=== PATIENT | female | born 1955 | race Caucasian/White ===

== ENCOUNTER 2020-02-16 12:09 | Inpatient (IN) | payer OTHER, SELFPAY ==
[2020-02-16] VITALS (9 sets, daily range): BP systolic 112–157; BP diastolic 70–89; PULSE 89–118; RESP 18–32; TEMP 35.8–36.9; O2SAT 98–100; BMI 29.4
--- NOTE | 2020-02-16 12:24 | DI.RAD.S_ITS ---
PROCEDURE: XR CHEST 2V INDICATIONS: shortness of breath TECHNIQUE: 2 views of the chest were acquired. COMPARISON: None. FINDINGS: Surgical changes and devices: None. Lungs and pleura: Lungs are clear. No pleural effusions or pneumothorax. Asymmetric increased density within the right lung compared to the left lung is felt to be related to positioning and obliquity of the patient. No focal pulmonary consolidation is appreciated. Mediastinum: Mediastinal contours are normal. Heart size is normal. There is aortic atherosclerosis. Bones and chest wall: No suspicious bony abnormalities. Soft tissues appear unremarkable. IMPRESSION: No acute cardiopulmonary process is appreciated. Dictated by: Laureano Fuller M.D. on 02/16/2020 at 12:05 Approved by: Laureano Fuller M.D. on 02/16/2020 at 12:10
--- NOTE | 2020-02-16 12:36 | PC.NURSE ---
Patient reports two weeks of SOB. Patient has had n/vomiting for last two days. Reports weakness, increase SOB. Patient normally drinks vodka daily has not had ETOH for couple days. Pt cool to the touch. Increase work of breathing with transfer from wheelchair to bed.
[2020-02-16 12:39] LABS: Add Manual Diff / Slide Review NO; Basophils Absolute Auto 0 /uL (0-100); Basophils Percent Auto 0.3 % (0-2); Eosinophils Absolute Auto 0 /uL (0-450); Hematocrit 47.3 % (36-46); Hemoglobin 16.2 g/dL (12.0-16.0); Lymphocytes Absolute Auto 500 /uL (1100-4500); Lymphocytes Percent Auto 9.4 % (25-40); Mean Corpuscular HGB Conc 34.3 % (30-36); Mean Corpuscular Hemoglobin 34.4 PG (26-34); Mean Corpuscular Volume 100.2 fL (80-100); Monocytes Absolute Auto 600 /uL (0-900); Monocytes Percent Auto 10.7 % (3-14); Neutrophils Absolute Auto 4500 /uL (1500-7000); Neutrophils Percent Auto 79.6 % (50-75); Platelet Count 67 X10^3/uL (150-400); Red Blood Cell Count 4.72 X10^6/uL (4.0-5.2); Red Cell Distribution Width 19.1 % (11.6-14.8); White Blood Cell Count 5.7 X10^3/uL (4.5-11.0)
[2020-02-16 12:50] LABS: Lactate (Lactic Acid) 2.5 mmol/L (0.7-2.1)
[2020-02-16 12:51] LABS: Alanine Aminotransferase 131 IU/L (<35); Albumin 5.1 g/dL (3.5-5.0); Alkaline Phosphatase 258 U/L (38-126); Aspartate Aminotransferase 374 IU/L (14-36); BUN Creatinine Ratio 13.8 (6-22); Bilirubin Total 2.7 mg/dL (0.2-1.3); Blood Urea Nitrogen 17 mg/dL (7-17); Calcium 9.3 mg/dL (8.4-10.2); Chloride 96 mmol/L (98-107); Estimated Glomerular Filt Rate 43.8 mL/min (>60); Glucose 239 mg/dL (80-110); HEMOLYSIS < 15 (0-50); Potassium 4.5 mmol/L (3.4-5.1); Sodium 133 mmol/L (137-145)
[2020-02-16 13:01] LABS: Albumin Globulin Ratio 1.1 (1.0-2.8); Globulin 4.5 g/dL (1.7-4.1); Total Protein 9.6 g/dL (6.3-8.2)
[2020-02-16 13:02] LABS: Carbon Dioxide 8 mmol/L (22-32)
[2020-02-16] MEDS: ONDANSETRON 4 MG/2 ML INJ (13:29)
--- NOTE | 2020-02-16 13:32 | DI.CT.S_ITS ---
PROCEDURE: CT ABDOMEN PELVIS W CON INDICATIONS: pain vomiting TECHNIQUE: After the administration of intravenous contrast, 5 mm thick sections acquired from the diaphragm to the symphysis. 5 mm coronal and sagittal reformats were acquired. For radiation dose reduction, the following was used: automated exposure control, adjustment of mA and/or kV according to patient size. COMPARISON: [facility], CT, CT ANGIO CHEST PE PROTOCOL, 02/16/2020, 13:33. FINDINGS: Image quality: Good. Mild motion artifact. ABDOMEN: Lung bases: Peripheral reticular thickening at the lung bases. No pleural effusion. Heart size is normal. Aortic valvular calcifications. Small hiatal hernia. Solid organs: Liver is normal in size. Hepatic steatosis. Gallbladder is absent. Biliary system is non dilated. Pancreas enhances normally. Apparent stranding in the retroperitoneum posterior to the pancreas, (08/06). No loculated fluid collection. Spleen is normal in size and enhancement. No adrenal nodules. Kidneys demonstrate normal size and enhancement, without hydronephrosis. Peritoneum and bowel: Bowel loops demonstrate normal wall thickness and caliber. Appendix not definitely seen. No ascites or pneumoperitoneum. Stranding and inferior to the liver. Nodes and vessels: No retroperitoneal or mesenteric adenopathy by size criteria. Aorta and inferior vena cava are normal in size. Miscellaneous: No ventral hernias. PELVIS: Genitourinary: Bladder is decompressed. Uterus is resected. Trace free fluid in the pelvis. Miscellaneous: No inguinal hernias or adenopathy. Bones: No suspicious bony lesions. Chronic appearing L1 compression fracture. IMPRESSION: 1. Mild stranding in the retroperitoneum adjacent to the pancreas and inferior to the liver. These findings raise the possibility of pancreatitis. -Recommend correlation with serum lipase. 2. Trace fluid in the pelvis. 3. No bowel obstruction. Additional findings: -Peripheral reticular thickening at the lung bases. Possible pulmonary edema versus interstitial lung disease. -Hepatic steatosis. -Small hiatal hernia. -Prior L1 compression fracture. Dictated by: Pj Wheeler M.D. on 02/16/2020 at 14:12 Approved by: Pj Wheeler M.D. on 02/16/2020 at 14:20
--- NOTE | 2020-02-16 13:36 | ED_ITS ---
HPI - SOB/Dyspnea General Chief Complaint: Shortness of Breath/Dyspnea Stated Complaint: SOB Time Seen by Provider: 02/16/20 12:25 Source: patient and family Mode of arrival: Family Vehicle Limitations: no limitations History of Present Illness HPI Narrative: The patient is 64-year-old female who presents with a variety of complaints. She says she has been short of breath for about 2 weeks on no fever or cough. She says it is worse with exertion she sometimes has chest discomfort as well. However she started having abdominal pain and vomiting as well. The vomiting she said started yesterday and is worse today. She has been trying to keep water down but has been unable to. She has no diarrhea. She denies any recent travel. She is an alcoholic and drinks vodka daily. However she has not had anything to drink for the last 2 days MD Complaint: shortness of breath Onset (ago): day(s) (14) Related Data Home Medications Medication Instructions Recorded Confirmed duloxetine 30 mg capsule,delayed 30 mg PO DAILY 08/09/19 09/19/19 release Previous Rx's Medication Instructions Recorded ketotifen fumarate 0.025 % (0.035 1 drop EYE-BOTH BID #5 ml 09/19/19 %) eye drops Allergies Allergy/AdvReac Type Severity Reaction Status Date / Time No Known Drug Allergies Allergy Verified 02/16/20 12:30 Review of Systems Review of Systems ROS Unobtainable: All systems reviewed & are unremarkable except as noted in HPI and below Constitutional Constitutional: Denies chills, Denies fever(s), Denies lethargy and Denies weakness Cardiovascular Cardiovascular: Reports as per HPI, Reports chest pain, Reports dyspnea and Reports dyspnea on exertion Respiratory Respiratory: Reports as per HPI, Denies cough, Reports dyspnea and Reports dyspnea on exertion Gastrointestinal Gastrointestinal: Reports abdominal pain, Denies change in bowel habits, Denies diarrhea, Reports nausea and Reports vomiting Integumentary/Breasts Skin/Breast: Denies pruritus, Denies erythema, Denies rash and Denies wounds Neurologic Neurologic: Denies abnormal speech and Denies weakness Patient History Social History Smoking Status: Former smoker Smoking Status: Former smoker alcohol intake frequency: 3 or more drinks per day Alcohol type: hard liquor Substance Use Type: does not use Exam Initial Vital Signs Initial Vital Signs: Vital Signs Pulse Rate 118 H 02/16/20 12:24 Respiratory Rate 32 H 02/16/20 12:24 Blood Pressure 112/70 02/16/20 12:24 Pulse Oximetry 98 02/16/20 12:24 GENERAL: Obese female HEENT: Head atraumatic,EOMI, pupils reactive, face symmetric, CARDIOVASCULAR: Regular rate and rhythm without murmurs, rubs or gallops. RESPIRATORY: Breath sounds equal bilaterally, no wheezes rales or rhonchi. No tachypnea speaks in full sentences ABDOMEN: Soft, tender right upper quadrant no guarding no rebound EXTREMITIES: Normal range of motion, no clubbing or edema. Neurovascularly intact NEUROLOGICAL: Alert and oriented x4.Normal gait and speech. SKIN: Warm, dry, no laceration, no petechiae, no rashes or lesions. Course Orders Ordered: ED Orders 02/16/20 12:24 XR chest 2V Stat EKG-12 Lead Stat Measure peak expiratory flow ONCE RT Consult Eval and Treat Now 02/16/20 12:30 CRP [C-Reactive Protein Quant] Stat Complete Blood Count AUTO DIFF Stat Comprehensive Metabolic Panel Stat Erythrocyte Sedimentation Rate Stat Ferritin Stat Ketones (Beta-Hydroxybutyrate) Stat Lactate (Lactic Acid) Stat NT-proBNP (BNP-Adult 18+) Stat Partial Thromboplastin Time Stat Procalcitonin Stat Prothrombin Time INR Stat Troponin & CK Cardiac Panel Stat 02/16/20 13:32 CT abdomen pelvis w con Stat 02/16/20 13:38 CT angio chest PE protocol Stat 02/16/20 15:31 Urinalysis and Microscopic Stat 02/16/20 16:15 Electrolytes Stat Glucose Stat Dextrose/Sodium Chloride (Dextrose 5%-0.9% Ns) 1,000 mls @ 150 mls/hr IV CONT JOSEPH Last Infusion: 02/16/20 18:00 Dose: 150 mls/hr Documented by: Admin: 02/16/20 17:45 Dose: 150 mls/hr Documented by: YASMINE INSULIN DRIP PREMIX (Myxredlin Drip Premix) 100 unit in 100 mls @ 6 mls/hr IV TITRATE JOSEPH; Protocol Last Admin: 02/16/20 17:24 Dose: 6 mls/hr, 6 mls/hr Documented by: YASMINE Cosigned by: KSCHERE Discontinued Medications Sodium Chloride (Normal Saline 0.9%) 1,000 mls @ 1,000 mls/hr IV BOLUS ONE Stop: 02/16/20 14:34 Last Infusion: 02/16/20 16:36 Dose: 0 mls/hr Documented by: Admin: 02/16/20 14:04 Dose: 1,000 mls/hr Documented by: YASMINE Insulin Human Regular 100 unit (/ Sodium Chloride) 100 mls @ 6 mls/hr IV TITRATE JOSEPH; Protocol Ondansetron HCl (Zofran) 4 mg IV NOW ONE Stop: 02/16/20 13:33 Last Admin: 02/16/20 14:43 Dose: Not Given Documented by: YASMINE Vital Signs Vital signs: Vital Signs - 8 hr 02/16/20 12:24 02/16/20 12:38 02/16/20 12:42 Temperature 96.5 F L Pulse Rate 118 H 89 Respiratory Rate 32 H 24 Blood Pressure 112/70 Blood Pressure [Right Arm] Pulse Oximetry 98 99 02/16/20 13:30 02/16/20 14:35 Temperature Pulse Rate 107 H Respiratory Rate 22 Blood Pressure Blood Pressure [Right Arm] 157/85 H Pulse Oximetry 100 MDM - SOB/Dyspnea Lab Data Attestation: I reviewed the patient's lab results. Result diagrams: 02/16/20 12:30 02/16/20 16:15 Labs: Lab Results 02/16/20 02/16/20 02/16/20 Range/Units 12:30 12:30 12:30 WBC 5.7 (4.5-11.0) X10^3/uL RBC 4.72 (4.0-5.2) X10^6/uL Hgb 16.2 H (12.0-16.0) g/dL Hct 47.3 H (36-46) % MCV 100.2 H (80-100) fL MCH 34.4 H (26-34) PG MCHC 34.3 (30-36) % RDW 19.1 H (11.6-14.8) % Plt Count 67 L (150-400) X10^3/uL Neut % (Auto) 79.6 H (50-75) % Lymph % (Auto) 9.4 L (25-40) % [place] % (Auto) 10.7 (3-14) % Eos % (Auto) 0.0 L (2-4) % Baso % (Auto) 0.3 (0-2) % Neut # (Auto) 4500 (2139-4710) /uL Lymph # (Auto) 500 L (1875-7581) /uL [place] # (Auto) 600 (0-900) /uL Eos # (Auto) 0 (0-450) /uL Baso # (Auto) 0 (0-100) /uL ESR (0-20) MM/HR PT (10.1-12.7) SECONDS INR (0.9-1.3) APTT (26.4-36.2) SECONDS Sodium 133 L (137-145) mmol/L Potassium 4.5 (3.4-5.1) mmol/L Chloride 96 L (98-107) mmol/L Carbon Dioxide 8 L* (22-32) mmol/L BUN 17 (7-17) mg/dL Creatinine 1.23 H (0.52-1.04) mg/dL Estimated GFR 43.8 L (>60) mL/min BUN/Creatinine Ratio 13.8 (6-22) Glucose 239 H (80-110) mg/dL Lactate 2.5 H (0.7-2.1) mmol/L Calcium 9.3 (8.4-10.2) mg/dL Ferritin (11-264) ng/mL Total Bilirubin 2.7 H (0.2-1.3) mg/dL AST 374 H (14-36) IU/L ALT 131 H (<35) IU/L Alkaline Phosphatase 258 H (38-126) U/L Total Creatine Kinase (30-135) U/L CK-MB (CK-2) (<2.37) ng/mL CK-MB (CK-2) Rel Index (1.5-5.0) % Troponin I (0.01-0.034) ng/mL C-Reactive Protein (<1.0) mg/dL NT-Pro-B Natriuret Pep (<125) pg/mL Total Protein 9.6 H (6.3-8.2) g/dL Albumin 5.1 H (3.5-5.0) g/dL Globulin 4.5 H (1.7-4.1) g/dL Albumin/Globulin Ratio 1.1 (1.0-2.8) Procalcitonin (<0.5) ng/mL Ketones (<0.27) mmol/L COVID-19 PCR 02/16/20 02/16/20 02/16/20 Range/Units 12:30 12:30 12:30 WBC (4.5-11.0) X10^3/uL RBC (4.0-5.2) X10^6/uL Hgb (12.0-16.0) g/dL Hct (36-46) % MCV (80-100) fL MCH (26-34) PG MCHC (30-36) % RDW (11.6-14.8) % Plt Count (150-400) X10^3/uL Neut % (Auto) (50-75) % Lymph % (Auto) (25-40) % [place] % (Auto) (3-14) % Eos % (Auto) (2-4) % Baso % (Auto) (0-2) % Neut # (Auto) (5780-3423) /uL Lymph # (Auto) (3366-9545) /uL [place] # (Auto) (0-900) /uL Eos # (Auto) (0-450) /uL Baso # (Auto) (0-100) /uL ESR 2 (0-20) MM/HR PT (10.1-12.7) SECONDS INR (0.9-1.3) APTT (26.4-36.2) SECONDS Sodium (137-145) mmol/L Potassium (3.4-5.1) mmol/L Chloride (98-107) mmol/L Carbon Dioxide (22-32) mmol/L BUN (7-17) mg/dL Creatinine (0.52-1.04) mg/dL Estimated GFR (>60) mL/min BUN/Creatinine Ratio (6-22) Glucose (80-110) mg/dL Lactate (0.7-2.1) mmol/L Calcium (8.4-10.2) mg/dL Ferritin 1950 H (11-264) ng/mL Total Bilirubin (0.2-1.3) mg/dL AST (14-36) IU/L ALT (<35) IU/L Alkaline Phosphatase (38-126) U/L Total Creatine Kinase (30-135) U/L CK-MB (CK-2) (<2.37) ng/mL CK-MB (CK-2) Rel Index (1.5-5.0) % Troponin I (0.01-0.034) ng/mL C-Reactive Protein 4.0 H (<1.0) mg/dL NT-Pro-B Natriuret Pep (<125) pg/mL Total Protein (6.3-8.2) g/dL Albumin (3.5-5.0) g/dL Globulin (1.7-4.1) g/dL Albumin/Globulin Ratio (1.0-2.8) Procalcitonin 0.63 H (<0.5) ng/mL Ketones (<0.27) mmol/L COVID-19 PCR 02/16/20 02/16/20 02/16/20 Range/Units 12:30 12:30 12:30 WBC (4.5-11.0) X10^3/uL RBC (4.0-5.2) X10^6/uL Hgb (12.0-16.0) g/dL Hct (36-46) % MCV (80-100) fL MCH (26-34) PG MCHC (30-36) % RDW (11.6-14.8) % Plt Count (150-400) X10^3/uL Neut % (Auto) (50-75) % Lymph % (Auto) (25-40) % [place] % (Auto) (3-14) % Eos % (Auto) (2-4) % Baso % (Auto) (0-2) % Neut # (Auto) (0847-2130) /uL Lymph # (Auto) (9589-2213) /uL [place] # (Auto) (0-900) /uL Eos # (Auto) (0-450) /uL Baso # (Auto) (0-100) /uL ESR (0-20) MM/HR PT 11.3 (10.1-12.7) SECONDS INR 1.0 (0.9-1.3) APTT 32 (26.4-36.2) SECONDS Sodium (137-145) mmol/L Potassium (3.4-5.1) mmol/L Chloride (98-107) mmol/L Carbon Dioxide (22-32) mmol/L BUN (7-17) mg/dL Creatinine (0.52-1.04) mg/dL Estimated GFR (>60) mL/min BUN/Creatinine Ratio (6-22) Glucose (80-110) mg/dL Lactate (0.7-2.1) mmol/L Calcium (8.4-10.2) mg/dL Ferritin (11-264) ng/mL Total Bilirubin (0.2-1.3) mg/dL AST (14-36) IU/L ALT (<35) IU/L Alkaline Phosphatase (38-126) U/L Total Creatine Kinase 174 H (30-135) U/L CK-MB (CK-2) 6.41 H (<2.37) ng/mL CK-MB (CK-2) Rel Index 3.7 (1.5-5.0) % Troponin I < 0.012 (0.01-0.034) ng/mL C-Reactive Protein (<1.0) mg/dL NT-Pro-B Natriuret Pep 231 H (<125) pg/mL Total Protein (6.3-8.2) g/dL Albumin (3.5-5.0) g/dL Globulin (1.7-4.1) g/dL Albumin/Globulin Ratio (1.0-2.8) Procalcitonin (<0.5) ng/mL Ketones 8.95 H (<0.27) mmol/L COVID-19 PCR 02/16/20 02/16/20 02/16/20 Range/Units 13:00 13:00 14:50 WBC (4.5-11.0) X10^3/uL RBC (4.0-5.2) X10^6/uL Hgb (12.0-16.0) g/dL Hct (36-46) % MCV (80-100) fL MCH (26-34) PG MCHC (30-36) % RDW (11.6-14.8) % Plt Count (150-400) X10^3/uL Neut % (Auto) (50-75) % Lymph % (Auto) (25-40) % [place] % (Auto) (3-14) % Eos % (Auto) (2-4) % Baso % (Auto) (0-2) % Neut # (Auto) (7689-2439) /uL Lymph # (Auto) (3064-9736) /uL [place] # (Auto) (0-900) /uL Eos # (Auto) (0-450) /uL Baso # (Auto) (0-100) /uL ESR (0-20) MM/HR PT (10.1-12.7) SECONDS INR (0.9-1.3) APTT (26.4-36.2) SECONDS Sodium (137-145) mmol/L Potassium (3.4-5.1) mmol/L Chloride (98-107) mmol/L Carbon Dioxide (22-32) mmol/L BUN (7-17) mg/dL Creatinine (0.52-1.04) mg/dL Estimated GFR (>60) mL/min BUN/Creatinine Ratio (6-22) Glucose (80-110) mg/dL Lactate 1.5 (0.7-2.1) mmol/L Calcium (8.4-10.2) mg/dL Ferritin (11-264) ng/mL Total Bilirubin (0.2-1.3) mg/dL AST (14-36) IU/L ALT (<35) IU/L Alkaline Phosphatase (38-126) U/L Total Creatine Kinase (30-135) U/L CK-MB (CK-2) (<2.37) ng/mL CK-MB (CK-2) Rel Index (1.5-5.0) % Troponin I (0.01-0.034) ng/mL C-Reactive Protein (<1.0) mg/dL NT-Pro-B Natriuret Pep (<125) pg/mL Total Protein (6.3-8.2) g/dL Albumin (3.5-5.0) g/dL Globulin (1.7-4.1) g/dL Albumin/Globulin Ratio (1.0-2.8) Procalcitonin (<0.5) ng/mL Ketones (<0.27) mmol/L COVID-19 PCR Cancelled Negative 02/16/20 02/16/20 02/16/20 Range/Units 14:50 14:50 16:15 WBC (4.5-11.0) X10^3/uL RBC (4.0-5.2) X10^6/uL Hgb (12.0-16.0) g/dL Hct (36-46) % MCV (80-100) fL MCH (26-34) PG MCHC (30-36) % RDW (11.6-14.8) % Plt Count (150-400) X10^3/uL Neut % (Auto) (50-75) % Lymph % (Auto) (25-40) % [place] % (Auto) (3-14) % Eos % (Auto) (2-4) % Baso % (Auto) (0-2) % Neut # (Auto) (5622-7408) /uL Lymph # (Auto) (1740-9956) /uL [place] # (Auto) (0-900) /uL Eos # (Auto) (0-450) /uL Baso # (Auto) (0-100) /uL ESR (0-20) MM/HR PT (10.1-12.7) SECONDS INR (0.9-1.3) APTT (26.4-36.2) SECONDS Sodium Cancelled 132 L (137-145) mmol/L Potassium Cancelled 5.0 (3.4-5.1) mmol/L Chloride Cancelled 99 (98-107) mmol/L Carbon Dioxide Cancelled 9 L* (22-32) mmol/L BUN (7-17) mg/dL Creatinine (0.52-1.04) mg/dL Estimated GFR (>60) mL/min BUN/Creatinine Ratio (6-22) Glucose Cancelled 165 H (80-110) mg/dL Lactate (0.7-2.1) mmol/L Calcium (8.4-10.2) mg/dL Ferritin (11-264) ng/mL Total Bilirubin (0.2-1.3) mg/dL AST (14-36) IU/L ALT (<35) IU/L Alkaline Phosphatase (38-126) U/L Total Creatine Kinase (30-135) U/L CK-MB (CK-2) (<2.37) ng/mL CK-MB (CK-2) Rel Index (1.5-5.0) % Troponin I (0.01-0.034) ng/mL C-Reactive Protein (<1.0) mg/dL NT-Pro-B Natriuret Pep (<125) pg/mL Total Protein (6.3-8.2) g/dL Albumin (3.5-5.0) g/dL Globulin (1.7-4.1) g/dL Albumin/Globulin Ratio (1.0-2.8) Procalcitonin (<0.5) ng/mL Ketones (<0.27) mmol/L COVID-19 PCR Imaging Data Chest x-ray: Radiologist's Impression: PROCEDURE: XR CHEST 2V INDICATIONS: shortness of breath TECHNIQUE: 2 views of the chest were acquired. COMPARISON: None. FINDINGS: Surgical changes and devices: None. Lungs and pleura: Lungs are clear. No pleural effusions or pneumothorax. Asymmetric increased density within the right lung compared to the left lung is felt to be related to positioning and obliquity of the patient. No focal pulmonary consolidation i s appreciated. Mediastinum: Mediastinal contours are normal. Heart size is normal. There is aortic atherosclerosis. Bones and chest wall: No suspicious bony abnormalities. Soft tissues appear unremarkable. IMPRESSION: No acute cardiopulmonary process is appreciated. Dictated by: Laureano Fuller M.D. on 02/16/2020 at 12:0 CT scan - abdomen/pelvis: Radiologist's Impression: PROCEDURE: CT ABDOMEN PELVIS W CON INDICATIONS: pain vomiting TECHNIQUE: After the administration of intravenous contrast, 5 mm thick sections acquired from the diaphragm to the symphysis. 5 mm coronal and sagittal reformats were acquired. For radiation dose reduction, the following was used: automated exposure control, adjustment of mA and/or kV according to patient size. COMPARISON: [facility], CT, CT ANGIO CHEST PE PROTOCOL, 02/16/2020, 13:33. FINDINGS: Image quality: Good. Mild motion artifact. ABDOMEN: Lung bases: Peripheral reticular thickening at the lung bases. No pleural effusion. Heart size is normal. Aortic valvular calcifications. Small hiatal hernia. Solid organs: Liver is normal in size. Hepatic steatosis. Gallbladder is absent. Biliary system is non dilated. Pancreas enhances normally. Apparent stranding in the retroperitoneum posterior to the pancreas, (08/06). No loculated fluid collection. Spleen is normal in size and enhancement. No adrenal nodules. Kidneys demonstrate normal size and enhancement, without hydronephrosis. Peritoneum and bowel: Bowel loops demonstrate normal wall thickness and caliber. Appendix not definitely seen. No ascites or pneumoperitoneum. Stranding and inferior to the liver. Nodes and vessels: No retroperitoneal or mesenteric adenopathy by size criteria. Aorta and inferior vena cava are normal in size. Miscellaneous: No ventral hernias. PELVIS: Genitourinary: Bladder is decompressed. Uterus is resected. Trace free fluid in the pelvis. Miscellaneous: No inguinal hernias or adenopathy. Bones: No suspicious bony lesions. Chronic appearing L1 compression fracture. IMPRESSION: 1. Mild stranding in the retroperitoneum adjacent to the pancreas and inferior to the liver. These findings raise the possibility of pancreatitis. -Recommend correlation with serum lipase. 2. Trace fluid in the pelvis. 3. No bowel obstruction. Additional findings: -Peripheral reticular thickening at the lung bases. Possible pulmonary edema versus interstitial lung disease. -Hepatic steatosis. -Small hiatal hernia. -Prior L1 compression fracture. Dictated by: Pj Wheeler M.D. on 02/16/2020 at 14:12 CT scan - chest: Radiologist's Impression: PROCEDURE: CT ANGIO CHEST PE PROTOCOL INDICATIONS: shortness of breath TECHNIQUE: After the administration of intravenous contrast, 2 mm thick sections acquired from the pulmonary apices to the posterior costophrenic angles. 3-dimensional maximum intensity projection (MIP) coronal and sagittal reformats were then acquired through the thorax. For radiation dose reduction, the following was used: automated exposure control, adjustment of mA and/or kV according to patient size. COMPARISON: [facility], , XR CHEST 2V, 02/16/2020, 12:24. FINDINGS: Image quality: Excellent. Pulmonary arteries: Pulmonary arteries are normal in size, and demonstrate no intraluminal filling defects to suggest central pulmonary embolism. Lungs and pleura: Scattered patchy groundglass opacities are seen in posterior and lateral periphery of bilateral lung abdi. Moderate centrilobular emphysema is also seen. Interstitial nodular thickening is seen in periphery of bilateral lung abdi. No pleural effusions or pneumothorax. Central and peripheral airways are patent. Mediastinum: Heart size is normal, without pericardial effusion. Mild atherosclerotic calcifications are seen. Mildly enlarged mediastinal and hilar lymph nodes are seen measures up to 1.1 cm in short axis diameter a precarinal space and up to 1.3 cm in short axis diameter in the subcarinal space. Esophagus is normal in caliber, with a small to moderate-sized hiatal hernia. Bones and chest wall: No suspicious bony lesions. Ribs and thoracic spine appear intact throughout. Thyroid gland is within normal limits. No axillary or supraclavicular adenopathy. Abdomen: There is hepatic steatosis, no discrete hepatic lesion. Hepatomegaly is also noted. IMPRESSION: 1. No evidence of pulmonary emboli. No thoracic aortic aneurysm or dissection. 2. Extensive ground glass opacities scattered in posterior lateral aspect of bilateral lung abdi suggestive of pulmonary edema versus pneumonitis. Atypical pneumonia cannot be excluded. No pleural effusion or pneumothorax. Airway is patent. 3. Moderate centrilobular emphysema and suggestion of chronic interstitial lung disease. 4. Enlarged mediastinal lymph nodes suggestive of reactive inflammatory nodes. 5. Hepatomegaly and hepatic steatosis. Dictated by: Ryley Parmar M.D. on 02/16/2020 at 13:5 ECG Data Attestation: I personally reviewed and interpreted this ECG as follows: Prior ECG tracings: not available for review Interpretation: Sinus tachycardia rate [address] changes artifact noted MDM Narrative Medical decision making narrative: Anion gap 29. Patient has no known diabetes possible alcoholic ketoacidosis. She is currently not vomiting. She is started on IV fluids. I spoke with Dr. Acosta. Requested repeat electrolytes. Bicarb continues to be low she is acidotic on ABG as well. Insulin drip and D5 have been started. Patient is requesting water. COVID is negative Discharge Plan Departure Patient Disposition: Admitted As Inpatient Clinical Impression: Ketoacidosis Discharge Date/Time: 02/16/20 18:14 Admit Date/Time: 02/16/20 17:30 Admit Provider: Demario Acosta
[2020-02-16 13:52] LABS: Creatine Kinase 174 U/L (30-135)
[2020-02-16 13:57] LABS: Ketones (Beta-Hydroxybutyrate) 8.95 mmol/L (<0.27)
[2020-02-16] MEDS: SODIUM CHLORIDE 0.9% 1,000 ML 1000 ML IV (14:04)
[2020-02-16 14:05] LABS: NT-proBNP (BNP-Adult 18+) 231 pg/mL (<125); Troponin I < 0.012 ng/mL (0.01-0.034)
[2020-02-16 14:09] LABS: Erythrocyte Sedimentation Rate 2 MM/HR (0-20); Procalcitonin 0.63 ng/mL (<0.5)
[2020-02-16 14:28] LABS: COVID19 -Nasal RAPID Negative (Negative)
[2020-02-16 14:36] LABS: Reflexed Lactate in 2 Hours Y
[2020-02-16 15:14] LABS: Lactate 2HR (Lactic Acid Rflx) 1.5 mmol/L (0.7-2.1)
[2020-02-16 15:25] LABS: Ferritin 1950 ng/mL (11-264)
[2020-02-16 16:01] LABS: CKMB % Relative Index 3.7 % (1.5-5.0); Creatine Kinase MB 6.41 ng/mL (<2.37)
[2020-02-16 16:03] LABS: Prothrombin Time 11.3 SECONDS (10.1-12.7)
[2020-02-16 16:06] LABS: PTT Partial Thromboplastin Tim 32 SECONDS (26.4-36.2)
--- NOTE | 2020-02-16 16:12 | PC.NURSE ---
RT at bedside for ABG
[2020-02-16 16:39] LABS: PCO2 ABG 17.2 mmHg (35-45)
[2020-02-16 16:40] LABS: Fractionated Inspired Oxygen 21; HCO3 ABG 7 mmol/L (22-26); Oxygen Saturation ABG 96 % (95-100); PO2 ABG 101 mmHg (80-100); TCO2 ABG 7 mmol/L (21-31)
[2020-02-16 17:00] LABS: Chloride 99 mmol/L (98-107); Glucose 165 mg/dL (80-110); HEMOLYSIS 33 (0-50); Sodium 132 mmol/L (137-145)
[2020-02-16 17:03] LABS: Carbon Dioxide 9 mmol/L (22-32)
[2020-02-16] MEDS: INSULIN DRIP PREMIX 100 UNIT/100 ML PLAST..BAG 6 UNIT IV (17:24)
[2020-02-16] MEDS: DEXTROSE 5%-0.9% NS 1,000 ML 150 ML IV (17:45)
--- NOTE | 2020-02-16 18:26 | PC.NURSE ---
Addendum entered by Vianey Hogan R.N. 02/16/20 22:42: 2230- Patient has bilious urine. Sample sent per order. Patient remains alert oriented and cooperative. No distress as long as she is lying in bed quiet. Becomes very SOB with activity. Insulin gtt remains off. KRider infusing per order. Patient is on room air. Patient remains afebrile. Original Note: 1800- Patient arrived via stretcher to room 227. Patient is alert and cooperative but very weak. Slide board needed to move from stretcher to bed. Patient had a rapid Covid test that was negative. However patient has suspicious markers, elevated Ferritin, Elevated CRP, Weakness with N/V and ground glass opacity on CT scan. Based on this we are treating her as a R/O covid until another test result is received. Insulin gtt is at 6u/hr and she has D5.9NS infusing at 150cc/hr. No void yet. Dr. Acosta here to see patient.
--- NOTE | 2020-02-16 19:12 | P.HP_ITS ---
History of Present Illness History of Present Illness Date Patient Seen: 02/16/20 Time Patient Seen: 19:12 Date of Onset of Symptoms: 02/09/20 Chief complaint: SOB Narrative: Morenita Watt is a 64 year old female with PMH of EtOH use, chronic neuropathy, and vision problems who presents with primarily nausea and vomiting for the past 1-2 days and shortness of breath progressive over the past week. She also has complained of a sore throat over the past week. Shortness of breath has really been over the past 6 months or so, starting with exertion but over the past few days leading to shortness of breath at rest. She denies any chest pain, or tightness. She does complain of epigastric abdominal pain but only recently after vomiting. She further complains of a sore throat and odynophagia. She also has been drinking quite heavily over the past 3 months since her birthday. She was a chronic alcoholic and was admitted approximately 6 years ago to [facility] for alcohol withdrawal where she suffered seizures and needed to be intubated. She reports being abstinent from alcohol until 3 months ago when she drink and her birthday and has continued drinking she states a 0.5 gal per week of vodka. In the emergency room, she was mildly tachypnic but other vitals were unremarkable. Initial laboratory evaluations showed a bicarb of 8 with a glucose of 236. Hgb of 16.2, MCV 100.2, and Plt of 67. ABC showed pH of 7.2 with PCO2 of 17 which was appropriate for bicarb of 7. Initial lactate 2.5 improved to 1.5 on repeat. Tbili 2.7 with AST of 374 and ALT 131. INR 1.0. Initialy trop negaitve. BNP 231. PRocalcitonin 0.63. Ferritin level 1950. CXR was negative for acute processes. CTA showing extensive ground glass opacities, centrolobular emphysema, enlarged lymph nodes, and CT Abd showing hepatomegaly and steatosis, trace fluid in the pelvis. Patient was admitted to the ICU on an insulin infusion for possible DKA. Patient History Family & Social History Safety & Behavioral: Feels Safe in Current Yes Environment Been Physically Hurt or No Threatened By a Person Tobacco & Substance use: Smoking Status Former smoker alcohol intake frequency 3 or more drinks per day Substance Use Type does not use Meds Home Medications and Allergies Home Medications Medication Instructions Recorded Confirmed Type duloxetine 30 mg capsule,delayed 30 mg PO DAILY 08/09/19 09/19/19 History release ketotifen fumarate 0.025 % (0.035 1 drop EYE-BOTH BID #5 ml 09/19/19 09/19/19 Rx %) eye drops Allergies Allergy/AdvReac Type Severity Reaction Status Date / Time No Known Drug Allergies Allergy Verified 02/16/20 12:30 Review of Systems Review of Systems Narrative: All other systems reviewed with the patient and are negative unless otherwise stated. Exam Vital Signs (past 8 hours): - 02/16/20 12:24 02/16/20 12:38 02/16/20 12:42 Temperature 96.5 F L Pulse Rate 118 H 89 Respiratory Rate 32 H 24 Blood Pressure 112/70 Blood Pressure [Right Arm] Pulse Oximetry 98 99 02/16/20 13:30 02/16/20 14:35 02/16/20 17:41 Temperature Pulse Rate 107 H 100 H Respiratory Rate 22 18 Blood Pressure 148/79 H Blood Pressure [Right Arm] 157/85 H Pulse Oximetry 100 100 02/16/20 18:00 Temperature 97.0 F L Pulse Rate 101 H Respiratory Rate 24 Blood Pressure 149/74 H Blood Pressure [Right Arm] Pulse Oximetry 100 Oxygen Delivery Method Room Air Oxygen Flow Rate 0 Narrative Exam Narrative: GENERAL APPEARANCE: Acutely ill-appearing female, but well developed and well nourished, resting comfortably in hospital bed. Slightly slowed speech. SKIN: Inspection of the skin reveals no rashes, ulcerations or petechiae. HEENT: Normocephalic atraumatic, extraocular muscles are intact, oropharynx has cobblestoning posteriorly, and there is a small white lesion posteriorly as well and possibly 1 on the back of her tongue. Mucous membranes are dry. Neck is supple, there is tender adenopathy on the right. NECK: Supple and symmetric. There was no thyroid enlargement. CHEST: Normal AP diameter and normal contour without any kyphoscoliosis. LUNGS: Auscultation of the lungs revealed bibasilar rales, slightly diminished breath sounds bilaterally but no wheezing. CARDIOVASCULAR: There was a tachycardic rate and regular rhythm without any murmurs, gallops, rubs. Peripheral pulses were 2+ and symmetric. ABDOMEN: Soft and nontender with normal bowel sounds. No ascites was noted. MUSCULOSKELETAL: There was no tenderness or effusions noted. Muscle strength and tone were normal. EXTREMITIES: No cyanosis, clubbing. There was possibly trace nonpitting edema bilaterally in her lower extremities. NEUROLOGIC: Alert and oriented x 3. Sluggish. Globally weak but no focal deficits. Sensation to touch was normal. Objective Labs Result Diagrams: 02/16/20 12:30 02/16/20 20:09 Labs: Laboratory Results - last 24 hr 02/16/20 02/16/20 02/16/20 12:30 12:30 12:30 WBC 5.7 RBC 4.72 Hgb 16.2 H Hct 47.3 H MCV 100.2 H MCH 34.4 H MCHC 34.3 RDW 19.1 H Plt Count 67 L Neut % (Auto) 79.6 H Lymph % (Auto) 9.4 L [place] % (Auto) 10.7 Eos % (Auto) 0.0 L Baso % (Auto) 0.3 Neut # (Auto) 4500 Lymph # (Auto) 500 L [place] # (Auto) 600 Eos # (Auto) 0 Baso # (Auto) 0 ESR PT INR APTT ABG pH ABG pCO2 ABG pO2 ABG HCO3 ABG Total CO2 ABG O2 Saturation ABG Base Excess FiO2 Sodium 133 L Potassium 4.5 Chloride 96 L Carbon Dioxide 8 L* BUN 17 Creatinine 1.23 H Estimated GFR 43.8 L BUN/Creatinine Ratio 13.8 Glucose 239 H Lactate 2.5 H Calcium 9.3 Ferritin Total Bilirubin 2.7 H AST 374 H ALT 131 H Alkaline Phosphatase 258 H Total Creatine Kinase CK-MB (CK-2) CK-MB (CK-2) Rel Index Troponin I C-Reactive Protein NT-Pro-B Natriuret Pep Total Protein 9.6 H Albumin 5.1 H Globulin 4.5 H Albumin/Globulin Ratio 1.1 Procalcitonin Ketones COVID-19 PCR 02/16/20 02/16/20 02/16/20 12:30 12:30 12:30 WBC RBC Hgb Hct MCV MCH MCHC RDW Plt Count Neut % (Auto) Lymph % (Auto) [place] % (Auto) Eos % (Auto) Baso % (Auto) Neut # (Auto) Lymph # (Auto) [place] # (Auto) Eos # (Auto) Baso # (Auto) ESR 2 PT INR APTT ABG pH ABG pCO2 ABG pO2 ABG HCO3 ABG Total CO2 ABG O2 Saturation ABG Base Excess FiO2 Sodium Potassium Chloride Carbon Dioxide BUN Creatinine Estimated GFR BUN/Creatinine Ratio Glucose Lactate Calcium Ferritin 1950 H Total Bilirubin AST ALT Alkaline Phosphatase Total Creatine Kinase CK-MB (CK-2) CK-MB (CK-2) Rel Index Troponin I C-Reactive Protein 4.0 H NT-Pro-B Natriuret Pep Total Protein Albumin Globulin Albumin/Globulin Ratio Procalcitonin 0.63 H Ketones COVID-19 PCR 02/16/20 02/16/20 02/16/20 12:30 12:30 12:30 WBC RBC Hgb Hct MCV MCH MCHC RDW Plt Count Neut % (Auto) Lymph % (Auto) [place] % (Auto) Eos % (Auto) Baso % (Auto) Neut # (Auto) Lymph # (Auto) [place] # (Auto) Eos # (Auto) Baso # (Auto) ESR PT 11.3 INR 1.0 APTT 32 ABG pH ABG pCO2 ABG pO2 ABG HCO3 ABG Total CO2 ABG O2 Saturation ABG Base Excess FiO2 Sodium Potassium Chloride Carbon Dioxide BUN Creatinine Estimated GFR BUN/Creatinine Ratio Glucose Lactate Calcium Ferritin Total Bilirubin AST ALT Alkaline Phosphatase Total Creatine Kinase 174 H CK-MB (CK-2) 6.41 H CK-MB (CK-2) Rel Index 3.7 Troponin I < 0.012 C-Reactive Protein NT-Pro-B Natriuret Pep 231 H Total Protein Albumin Globulin Albumin/Globulin Ratio Procalcitonin Ketones 8.95 H COVID-19 PCR 02/16/20 02/16/20 02/16/20 13:00 13:00 14:50 WBC RBC Hgb Hct MCV MCH MCHC RDW Plt Count Neut % (Auto) Lymph % (Auto) [place] % (Auto) Eos % (Auto) Baso % (Auto) Neut # (Auto) Lymph # (Auto) [place] # (Auto) Eos # (Auto) Baso # (Auto) ESR PT INR APTT ABG pH ABG pCO2 ABG pO2 ABG HCO3 ABG Total CO2 ABG O2 Saturation ABG Base Excess FiO2 Sodium Potassium Chloride Carbon Dioxide BUN Creatinine Estimated GFR BUN/Creatinine Ratio Glucose Lactate 1.5 Calcium Ferritin Total Bilirubin AST ALT Alkaline Phosphatase Total Creatine Kinase CK-MB (CK-2) CK-MB (CK-2) Rel Index Troponin I C-Reactive Protein NT-Pro-B Natriuret Pep Total Protein Albumin Globulin Albumin/Globulin Ratio Procalcitonin Ketones COVID-19 PCR Cancelled Negative 02/16/20 02/16/20 02/16/20 14:50 14:50 16:15 WBC RBC Hgb Hct MCV MCH MCHC RDW Plt Count Neut % (Auto) Lymph % (Auto) [place] % (Auto) Eos % (Auto) Baso % (Auto) Neut # (Auto) Lymph # (Auto) [place] # (Auto) Eos # (Auto) Baso # (Auto) ESR PT INR APTT ABG pH ABG pCO2 ABG pO2 ABG HCO3 ABG Total CO2 ABG O2 Saturation ABG Base Excess FiO2 Sodium Cancelled 132 L Potassium Cancelled 5.0 Chloride Cancelled 99 Carbon Dioxide Cancelled 9 L* BUN Creatinine Estimated GFR BUN/Creatinine Ratio Glucose Cancelled 165 H Lactate Calcium Ferritin Total Bilirubin AST ALT Alkaline Phosphatase Total Creatine Kinase CK-MB (CK-2) CK-MB (CK-2) Rel Index Troponin I C-Reactive Protein NT-Pro-B Natriuret Pep Total Protein Albumin Globulin Albumin/Globulin Ratio Procalcitonin Ketones COVID-19 PCR 02/16/20 Unknown WBC RBC Hgb Hct MCV MCH MCHC RDW Plt Count Neut % (Auto) Lymph % (Auto) [place] % (Auto) Eos % (Auto) Baso % (Auto) Neut # (Auto) Lymph # (Auto) [place] # (Auto) Eos # (Auto) Baso # (Auto) ESR PT INR APTT ABG pH 7.20 L* ABG pCO2 17.2 L* ABG pO2 101 H ABG HCO3 7 L ABG Total CO2 7 L ABG O2 Saturation 96 ABG Base Excess -21.0 L FiO2 21 Sodium Potassium Chloride Carbon Dioxide BUN Creatinine Estimated GFR BUN/Creatinine Ratio Glucose Lactate Calcium Ferritin Total Bilirubin AST ALT Alkaline Phosphatase Total Creatine Kinase CK-MB (CK-2) CK-MB (CK-2) Rel Index Troponin I C-Reactive Protein NT-Pro-B Natriuret Pep Total Protein Albumin Globulin Albumin/Globulin Ratio Procalcitonin Ketones COVID-19 PCR Assessment & Plan Assessment & Plan narrative: Morenita Watt is a 64 year old female with PMH of EtOH use, chronic neuropathy, and vision problems who presents with primarily nausea and vomiting for the past 1-2 days and shortness of breath progressive over the past week. She is admitted to the ICU for insulin infusion given possible DKA. 1. Anion gap metabolic acidosis, present on admission, appropriately compensated - suspect more likely alcoholic ketoacidosis or starvation ketosis moreso than DKA. however patient does not have reliable medical follow up and did have a glucose of 239 on admission. Cannot completely exclude DKA and therefor will treat as such until Anion gap closes and bicarb is above 15. - will send tylenol and salicylate levels. - last EtOH 2 days ago. - initial LA 2.5 - continue insulin infusion and d5 infusion. Finger sticks q1hr while on infusion. - will obtain A1c, TSH, and lipid panel. 2. EtOH use - last drink was 2 days ago. patient with history of severe withdrawal episode approx 6 years ago requiring intubation and where she suffered a seizure. - CIWA protocol with prn ativan as needed. 3. Acute hepatitis, present on admission - likely secondary to alcohol use. However given severity of transferrin elevation consider iron overload. - furhter consider ischemia given dehydration and acidosis as above - continue to follow hepatic function labs. Discriminant function of 2. No indication for steroids. 4. Elevated Ferritin - will evaluate with iron panel for TSAT calculation - suspected to be elevated given alcoholic liver disease, and possible this is reactive to an underlying infective process. - obtain UA and eval for infectious process causing elevated ferritin. 5. Dehydration - secondary to nausea, vomiting and decreased PO intake. - will rehydrate with D5 NS given above insulin infusion. 6. Bilateral pulmonary ground glass opacities, possible pneumonia - patient reports dyspnea on exertion over the past 6 months, worsening recently. Ground glass opacities are non-specific. - initial COVID 19 testing negative, will repeat and send complete viral panel. - obtain blood cultures, will treat empirically for CAP with CTX and azithro after blood cultures are drawn given severity of metabolic acidosis on presentation and CT findings. Mild procalcitonin elevation also indicative of possible bacterial infection. 7. Thrombocytopenia - possibly secondary to underlying liver disease or EtOH use. - continue to follow. transfuse for plt <20, <50 if bleeding. - hold DVT ppx. - consider hematology evaluation 8. hyponatremia, acute, present on admission - likely secondary to hypovolemia. Continue to follow. Mild only at 133 on admission. I spent 45 minutes providing critical care management this patient. This excludes time spent in performing separately billed procedures. Code: Full, surrogate decision maker is the patient's DVT: SCDs given thrombocytopenia Dispo: admitted to the ICU for insulin infusion
[2020-02-16 19:37] LABS: HEMOLYSIS 32 (0-50); Iron 203 ug/dL (37-170)
[2020-02-16 19:48] LABS: Percent Iron Saturation 100 % (15-50); Total Iron Binding Capacity 203 ug/dL (265-497); Transferrin 159 mg/dL (206-381)
[2020-02-16 20:21] LABS: HIV 1 & 2 Ab/Ag 4th Gen Combo NEGATIVE (NEGATIVE)
[2020-02-16 20:32] LABS: Acetaminophen < 10 ug/mL (10-30); Alanine Aminotransferase 98 IU/L (<35); Albumin 4.4 g/dL (3.5-5.0); Albumin Globulin Ratio 1.1 (1.0-2.8); Alkaline Phosphatase 201 U/L (38-126); Aspartate Aminotransferase 261 IU/L (14-36); BUN Creatinine Ratio 21.5 (6-22); Bilirubin Total 1.6 mg/dL (0.2-1.3); Blood Urea Nitrogen 17 mg/dL (7-17); Calcium 8.9 mg/dL (8.4-10.2); Carbon Dioxide 11 mmol/L (22-32); Chloride 103 mmol/L (98-107); Estimated Glomerular Filt Rate > 60.0 mL/min (>60); Globulin 3.9 g/dL (1.7-4.1); Glucose 107 mg/dL (80-110); HEMOLYSIS < 15 (0-50); Potassium 3.8 mmol/L (3.4-5.1); Salicylate 1.1 mg/dL (<20); Sodium 133 mmol/L (137-145); Total Protein 8.3 g/dL (6.3-8.2)
[2020-02-16 21:01] LABS: COVID19 -Nasal RAPID Negative (Negative)
[2020-02-16] MEDS: CEFTRIAXONE 1 GM/50 ML FROZ.PIGGY IV (21:07)
[2020-02-16 21:15] LABS: Adenovirus Not Detected (Not Detect); Bordetella pertussis Not Detected (Not Detect); Chlamydophila pneumoniae Not Detected (Not Detect); Coronavirus 229E Not Detected (Not Detect); Coronavirus HKU1 Not Detected (Not Detect); Coronavirus NL 63 Not Detected (Not Detect); Coronavirus OC43 Not Detected (Not Detect); Human Metapneumovirus Not Detected (Not Detect); Human Rhinovirus/Enterovirus Not Detected (Not Detect); Influenza A Not Detected (Not Detect); Influenza B Not Detected (Not Detect); Mycoplasma pneumoniae Not Detected (Not Detect); Parainfluenza Virus 1 Not Detected (Not Detect); Parainfluenza Virus 2 Not Detected (Not Detect); Parainfluenza Virus 3 Not Detected (Not Detect); Parainfluenza Virus 4 Not Detected (Not Detect); Respiratory Syncytial Virus Not Detected (Not Detect)
[2020-02-16] MEDS: AZITHROMYCIN 250 MG in DEXTROSE 5% IN WATER 250 ML IV (21:41)
[2020-02-16 22:10] LABS: WBC Urine None Seen (0-5/HPF)
[2020-02-16 22:11] LABS: Appearance Urine UA CLEAR; Bilirubin Urine UA 2+ (NEGATIVE); Glucose Urine UA NEGATIVE (Negative); Ketones Urine UA 3+ (NEGATIVE); Leukocyte Esterase Urine UA NEGATIVE (NEGATIVE); Nitrite Urine UA NEGATIVE (Negative); Occult Blood Urine UA 3+ (Negative); Protein Urine UA 2+ (Negative); Specific Gravity Urine UA <=1.005 (1.000-1.035)
[2020-02-16] MEDS: POTASSIUM CHLORIDE 40 MEQ in SODIUM CHLORIDE 0.9% 500 ML 130 ML IV (22:17)
[2020-02-16 22:36] LABS: Color Urine UA Dark Yellow; Ictotest Urine Positive (Negative); RBC Urine 5-10/HPF (0-5/HPF)
[2020-02-16 22:37] LABS: Amorphous Sediment Urine 1+; Bacteria Urine Occasional (0-1); Culture Indicated Urine Cult Not Indicated; Hyaline Casts Urine 0-1/LPF; Squamous Epithelial Cell Urine 1-5 /HPF (0-5/HPF)
[2020-02-17] VITALS (8 sets, daily range): BP systolic 120–157; BP diastolic 58–76; PULSE 104–115; RESP 16–26; TEMP 35.8–37.9; O2SAT 92–100
[2020-02-17] MEDS: THIAMINE 200 MG/2 ML VIAL 100 MG IV (01:37)
[2020-02-17] MEDS: DEXTROSE 5%-0.9% NS 1,000 ML 150 ML IV ×4 (01:41→21:26)
[2020-02-17 04:57] LABS: Add Manual Diff / Slide Review NO; Basophils Absolute Auto 0 /uL (0-100); Basophils Percent Auto 0.2 % (0-2); Eosinophils Absolute Auto 0 /uL (0-450); Eosinophils Percent Auto 0.1 % (2-4); Hematocrit 34.1 % (36-46); Hemoglobin A1C% w Est Avg Glu 4.6 % (4.0-6.0); Lymphocytes Absolute Auto 300 /uL (1100-4500); Lymphocytes Percent Auto 14.4 % (25-40); Mean Corpuscular HGB Conc 35.3 % (30-36); Mean Corpuscular Hemoglobin 34.4 PG (26-34); Mean Corpuscular Volume 97.6 fL (80-100); Monocytes Absolute Auto 300 /uL (0-900); Monocytes Percent Auto 12.1 % (3-14); Neutrophils Absolute Auto 1700 /uL (1500-7000); Neutrophils Percent Auto 73.2 % (50-75); Red Blood Cell Count 3.49 X10^6/uL (4.0-5.2); Red Cell Distribution Width 19.2 % (11.6-14.8)
[2020-02-17 04:58] LABS: Cholesterol 137 mg/dL (140-199); HDL Cholesterol 61 mg/dL (40-60); LDL Cholesterol Calculated 52 mg/dL (<100); Triglycerides 120 mg/dL (35-150)
[2020-02-17 04:59] LABS: Platelet Count 46 X10^3/uL (150-400); White Blood Cell Count 2.3 X10^3/uL (4.5-11.0)
[2020-02-17 05:00] LABS: Alanine Aminotransferase 76 IU/L (<35); Albumin 3.4 g/dL (3.5-5.0); Alkaline Phosphatase 169 U/L (38-126); Aspartate Aminotransferase 189 IU/L (14-36); Blood Urea Nitrogen 16 mg/dL (7-17); Calcium 8.7 mg/dL (8.4-10.2); Carbon Dioxide 16 mmol/L (22-32); Chloride 106 mmol/L (98-107); Estimated Glomerular Filt Rate > 60.0 mL/min (>60); Globulin 3.5 g/dL (1.7-4.1); Glucose 151 mg/dL (80-110); HEMOLYSIS < 15 (0-50); Magnesium 1.6 mg/dL (1.6-2.3); Potassium 4.4 mmol/L (3.4-5.1); Sodium 133 mmol/L (137-145); Total Protein 6.9 g/dL (6.3-8.2)
[2020-02-17 05:16] LABS: Phosphorous < 0.5 mg/dL (2.8-4.1)
[2020-02-17 05:27] LABS: Procalcitonin 0.32 ng/mL (<0.5)
[2020-02-17 05:43] LABS: Hepatitis B Surface Antigen NEGATIVE s/c (NEGATIVE)
[2020-02-17 05:47] LABS: TSH w/ Reflex to FT4 3.35 uIU/mL (0.47-4.68)
[2020-02-17 06:01] LABS: Hep C Virus Ab w/Reflex Quant NEGATIVE s/c (NEGATIVE)
[2020-02-17 06:22] LABS: Ferritin 1350 ng/mL (11-264)
--- NOTE | 2020-02-17 08:04 | PM.PN.1 ---
Subjective Subjective Date Patient Seen: 02/17/20 Time Patient Seen: 08:05 Interval history: Morenita Watt is a 64 year old female with PMH of EtOH use, chronic neuropathy, and vision problems who presents with primarily nausea and vomiting for the past 1-2 days and shortness of breath progressive over the past week. She was admitted with a severe anion gap metabolic acidosis. Anion gap has resolved after treating for possible DKA however her phosphorus was very low this morning. It appears that she is much more likely to have starvation ketosis. Either way her gap is closed and her bicarb is above 15 this morning and insulin infusion will be held. Patient is given phosphorus repletion. This morning she feels slightly better but still profoundly weak. She denies any nausea, or vomiting. She further denies any abdominal pain, chest pain, palpitations. She states she is much less short of breath. Exam Vital Signs (past 8 hours): - 02/17/20 00:16 02/17/20 02:00 02/17/20 04:00 Temperature 96.5 F L 97.0 F L Pulse Rate 105 H 115 H 106 H Respiratory Rate 18 19 19 Blood Pressure 147/70 H 157/76 H 142/64 H Pulse Oximetry 100 92 99 02/17/20 06:00 Temperature Pulse Rate 106 H Respiratory Rate 17 Blood Pressure 120/58 L Pulse Oximetry 100 Oxygen Delivery Method Room Air Oxygen Flow Rate 0 Narrative Exam Narrative: GENERAL APPEARANCE: Acutely ill-appearing female, but well developed and well nourished, resting comfortably in hospital bed. Slightly slowed speech. SKIN: Inspection of the skin reveals no rashes, ulcerations or petechiae. HEENT: Normocephalic atraumatic, extraocular muscles are intact, oropharynx has cobblestoning posteriorly, and there is a small white lesion posteriorly as well and possibly 1 on the back of her tongue. Mucous membranes are dry. Neck is supple, there is tender adenopathy on the right. NECK: Supple and symmetric. There was no thyroid enlargement. CHEST: Normal AP diameter and normal contour without any kyphoscoliosis. LUNGS: Auscultation of the lungs revealed bibasilar rales, slightly diminished breath sounds bilaterally but no wheezing. CARDIOVASCULAR: There was a tachycardic rate and regular rhythm without any murmurs, gallops, rubs. Peripheral pulses were 2+ and symmetric. ABDOMEN: Soft and nontender with normal bowel sounds. No ascites was noted. MUSCULOSKELETAL: There was no tenderness or effusions noted. Muscle strength and tone were normal. EXTREMITIES: No cyanosis, clubbing. There was possibly trace nonpitting edema bilaterally in her lower extremities. NEUROLOGIC: Alert and oriented x 3. Sluggish. Globally weak but no focal deficits. Sensation to touch was normal. Objective Labs Result Diagrams: 02/17/20 04:30 02/17/20 04:30 Labs: Laboratory Results - last 24 hr 02/16/20 02/16/20 02/16/20 12:30 12:30 12:30 WBC 5.7 RBC 4.72 Hgb 16.2 H Hct 47.3 H MCV 100.2 H MCH 34.4 H MCHC 34.3 RDW 19.1 H Plt Count 67 L Neut % (Auto) 79.6 H Lymph % (Auto) 9.4 L Fre[place] % (Auto) 10.7 Eos % (Auto) 0.0 L Baso % (Auto) 0.3 Neut # (Auto) 4500 Lymph # (Auto) 500 L Fre[place] # (Auto) 600 Eos # (Auto) 0 Baso # (Auto) 0 ESR PT INR APTT ABG pH ABG pCO2 ABG pO2 ABG HCO3 ABG Total CO2 ABG O2 Saturation ABG Base Excess FiO2 Sodium 133 L Potassium 4.5 Chloride 96 L Carbon Dioxide 8 L* BUN 17 Creatinine 1.23 H Estimated GFR 43.8 L BUN/Creatinine Ratio 13.8 Glucose 239 H Hemoglobin A1c Lactate 2.5 H Calcium 9.3 Phosphorus Magnesium Iron TIBC % Saturation Transferrin Ferritin Total Bilirubin 2.7 H AST 374 H ALT 131 H Alkaline Phosphatase 258 H Total Creatine Kinase CK-MB (CK-2) CK-MB (CK-2) Rel Index Troponin I C-Reactive Protein NT-Pro-B Natriuret Pep Total Protein 9.6 H Albumin 5.1 H Globulin 4.5 H Albumin/Globulin Ratio 1.1 Triglycerides Cholesterol LDL Cholesterol, Calc HDL Cholesterol Procalcitonin TSH Urine Color Urine Appearance Urine pH Ur Specific Lorman Urine Protein Urine Glucose (UA) Urine Ketones Urine Occult Blood Urine Nitrate Urine Bilirubin Ur Bilirubin Confirm Urine Urobilinogen Ur Leukocyte Esterase Urine RBC Urine WBC Ur Squamous Epith Cells Amorphous Sediment Urine Bacteria Hyaline Casts Ur Culture Indicated? Nasal Screen MRSA (PCR) Salicylates Acetaminophen Ketones Chlamy pneumoniae PCR Adenovirus (PCR) B.parapertussis DNA PCR Coronavirus OC43 (PCR) Coronavirus HKU1 (PCR) Coronavirus 229E (PCR) COVID-19 PCR Coronavirus NL63 (PCR) Hep Bs Antigen Hepatitis C Antibody HIV 1&2 Ab/P24 Ag 4thGn Human Metapneumovir PCR Influenza Type A (PCR) Influenza Type B (PCR) M. pneumoniae (PCR) Parainfluenza 1 (PCR) Parainfluenza 2 (PCR) Parainfluenza 3 (PCR) Parainfluenza 4 (PCR) RSV (PCR) Entero/Rhino (PCR) 02/16/20 02/16/20 02/16/20 12:30 12:30 12:30 WBC RBC Hgb Hct MCV MCH MCHC RDW Plt Count Neut % (Auto) Lymph % (Auto) Freestone % (Auto) Eos % (Auto) Baso % (Auto) Neut # (Auto) Lymph # (Auto) [place] # (Auto) Eos # (Auto) Baso # (Auto) ESR 2 PT INR APTT ABG pH ABG pCO2 ABG pO2 ABG HCO3 ABG Total CO2 ABG O2 Saturation ABG Base Excess FiO2 Sodium Potassium Chloride Carbon Dioxide BUN Creatinine Estimated GFR BUN/Creatinine Ratio Glucose Hemoglobin A1c Lactate Calcium Phosphorus Magnesium Iron TIBC % Saturation Transferrin Ferritin 1950 H Total Bilirubin AST ALT Alkaline Phosphatase Total Creatine Kinase CK-MB (CK-2) CK-MB (CK-2) Rel Index Troponin I C-Reactive Protein 4.0 H NT-Pro-B Natriuret Pep Total Protein Albumin Globulin Albumin/Globulin Ratio Triglycerides Cholesterol LDL Cholesterol, Calc HDL Cholesterol Procalcitonin 0.63 H TSH Urine Color Urine Appearance Urine pH Ur Specific Lorman Urine Protein Urine Glucose (UA) Urine Ketones Urine Occult Blood Urine Nitrate Urine Bilirubin Ur Bilirubin Confirm Urine Urobilinogen Ur Leukocyte Esterase Urine RBC Urine WBC Ur Squamous Epith Cells Amorphous Sediment Urine Bacteria Hyaline Casts Ur Culture Indicated? Nasal Screen MRSA (PCR) Salicylates Acetaminophen Ketones Chlamy pneumoniae PCR Adenovirus (PCR) B.parapertussis DNA PCR Coronavirus OC43 (PCR) Coronavirus HKU1 (PCR) Coronavirus 229E (PCR) COVID-19 PCR Coronavirus NL63 (PCR) Hep Bs Antigen Hepatitis C Antibody HIV 1&2 Ab/P24 Ag 4thGn Human Metapneumovir PCR Influenza Type A (PCR) Influenza Type B (PCR) M. pneumoniae (PCR) Parainfluenza 1 (PCR) Parainfluenza 2 (PCR) Parainfluenza 3 (PCR) Parainfluenza 4 (PCR) RSV (PCR) Entero/Rhino (PCR) 02/16/20 02/16/20 02/16/20 12:30 12:30 12:30 WBC RBC Hgb Hct MCV MCH MCHC RDW Plt Count Neut % (Auto) Lymph % (Auto) Freestone % (Auto) Eos % (Auto) Baso % (Auto) Neut # (Auto) Lymph # (Auto) Fre[place] # (Auto) Eos # (Auto) Baso # (Auto) ESR PT 11.3 INR 1.0 APTT 32 ABG pH ABG pCO2 ABG pO2 ABG HCO3 ABG Total CO2 ABG O2 Saturation ABG Base Excess FiO2 Sodium Potassium Chloride Carbon Dioxide BUN Creatinine Estimated GFR BUN/Creatinine Ratio Glucose Hemoglobin A1c Lactate Calcium Phosphorus Magnesium Iron TIBC % Saturation Transferrin Ferritin Total Bilirubin AST ALT Alkaline Phosphatase Total Creatine Kinase 174 H CK-MB (CK-2) 6.41 H CK-MB (CK-2) Rel Index 3.7 Troponin I < 0.012 C-Reactive Protein NT-Pro-B Natriuret Pep 231 H Total Protein Albumin Globulin Albumin/Globulin Ratio Triglycerides Cholesterol LDL Cholesterol, Calc HDL Cholesterol Procalcitonin TSH Urine Color Urine Appearance Urine pH Ur Specific Lorman Urine Protein Urine Glucose (UA) Urine Ketones Urine Occult Blood Urine Nitrate Urine Bilirubin Ur Bilirubin Confirm Urine Urobilinogen Ur Leukocyte Esterase Urine RBC Urine WBC Ur Squamous Epith Cells Amorphous Sediment Urine Bacteria Hyaline Casts Ur Culture Indicated? Nasal Screen MRSA (PCR) Salicylates Acetaminophen Ketones 8.95 H Chlamy pneumoniae PCR Adenovirus (PCR) B.parapertussis DNA PCR Coronavirus OC43 (PCR) Coronavirus HKU1 (PCR) Coronavirus 229E (PCR) COVID-19 PCR Coronavirus NL63 (PCR) Hep Bs Antigen Hepatitis C Antibody HIV 1&2 Ab/P24 Ag 4thGn Human Metapneumovir PCR Influenza Type A (PCR) Influenza Type B (PCR) M. pneumoniae (PCR) Parainfluenza 1 (PCR) Parainfluenza 2 (PCR) Parainfluenza 3 (PCR) Parainfluenza 4 (PCR) RSV (PCR) Entero/Rhino (PCR) 02/16/20 02/16/20 02/16/20 13:00 13:00 14:50 WBC RBC Hgb Hct MCV MCH MCHC RDW Plt Count Neut % (Auto) Lymph % (Auto) Freestone % (Auto) Eos % (Auto) Baso % (Auto) Neut # (Auto) Lymph # (Auto) [place] # (Auto) Eos # (Auto) Baso # (Auto) ESR PT INR APTT ABG pH ABG pCO2 ABG pO2 ABG HCO3 ABG Total CO2 ABG O2 Saturation ABG Base Excess FiO2 Sodium Potassium Chloride Carbon Dioxide BUN Creatinine Estimated GFR BUN/Creatinine Ratio Glucose Hemoglobin A1c Lactate 1.5 Calcium Phosphorus Magnesium Iron TIBC % Saturation Transferrin Ferritin Total Bilirubin AST ALT Alkaline Phosphatase Total Creatine Kinase CK-MB (CK-2) CK-MB (CK-2) Rel Index Troponin I C-Reactive Protein NT-Pro-B Natriuret Pep Total Protein Albumin Globulin Albumin/Globulin Ratio Triglycerides Cholesterol LDL Cholesterol, Calc HDL Cholesterol Procalcitonin TSH Urine Color Urine Appearance Urine pH Ur Specific Lorman Urine Protein Urine Glucose (UA) Urine Ketones Urine Occult Blood Urine Nitrate Urine Bilirubin Ur Bilirubin Confirm Urine Urobilinogen Ur Leukocyte Esterase Urine RBC Urine WBC Ur Squamous Epith Cells Amorphous Sediment Urine Bacteria Hyaline Casts Ur Culture Indicated? Nasal Screen MRSA (PCR) Salicylates Acetaminophen Ketones Chlamy pneumoniae PCR Adenovirus (PCR) B.parapertussis DNA PCR Coronavirus OC43 (PCR) Coronavirus HKU1 (PCR) Coronavirus 229E (PCR) COVID-19 PCR Cancelled Negative Coronavirus NL63 (PCR) Hep Bs Antigen Hepatitis C Antibody HIV 1&2 Ab/P24 Ag 4thGn Human Metapneumovir PCR Influenza Type A (PCR) Influenza Type B (PCR) M. pneumoniae (PCR) Parainfluenza 1 (PCR) Parainfluenza 2 (PCR) Parainfluenza 3 (PCR) Parainfluenza 4 (PCR) RSV (PCR) Entero/Rhino (PCR) 02/16/20 02/16/20 02/16/20 14:50 14:50 16:15 WBC RBC Hgb Hct MCV MCH MCHC RDW Plt Count Neut % (Auto) Lymph % (Auto) Fre[place] % (Auto) Eos % (Auto) Baso % (Auto) Neut # (Auto) Lymph # (Auto) [place] # (Auto) Eos # (Auto) Baso # (Auto) ESR PT INR APTT ABG pH ABG pCO2 ABG pO2 ABG HCO3 ABG Total CO2 ABG O2 Saturation ABG Base Excess FiO2 Sodium Cancelled 132 L Potassium Cancelled 5.0 Chloride Cancelled 99 Carbon Dioxide Cancelled 9 L* BUN Creatinine Estimated GFR BUN/Creatinine Ratio Glucose Cancelled 165 H Hemoglobin A1c Lactate Calcium Phosphorus Magnesium Iron TIBC % Saturation Transferrin Ferritin Total Bilirubin AST ALT Alkaline Phosphatase Total Creatine Kinase CK-MB (CK-2) CK-MB (CK-2) Rel Index Troponin I C-Reactive Protein NT-Pro-B Natriuret Pep Total Protein Albumin Globulin Albumin/Globulin Ratio Triglycerides Cholesterol LDL Cholesterol, Calc HDL Cholesterol Procalcitonin TSH Urine Color Urine Appearance Urine pH Ur Specific Lorman Urine Protein Urine Glucose (UA) Urine Ketones Urine Occult Blood Urine Nitrate Urine Bilirubin Ur Bilirubin Confirm Urine Urobilinogen Ur Leukocyte Esterase Urine RBC Urine WBC Ur Squamous Epith Cells Amorphous Sediment Urine Bacteria Hyaline Casts Ur Culture Indicated? Nasal Screen MRSA (PCR) Salicylates Acetaminophen Ketones Chlamy pneumoniae PCR Adenovirus (PCR) B.parapertussis DNA PCR Coronavirus OC43 (PCR) Coronavirus HKU1 (PCR) Coronavirus 229E (PCR) COVID-19 PCR Coronavirus NL63 (PCR) Hep Bs Antigen Hepatitis C Antibody HIV 1&2 Ab/P24 Ag 4thGn Human Metapneumovir PCR Influenza Type A (PCR) Influenza Type B (PCR) M. pneumoniae (PCR) Parainfluenza 1 (PCR) Parainfluenza 2 (PCR) Parainfluenza 3 (PCR) Parainfluenza 4 (PCR) RSV (PCR) Entero/Rhino (PCR) 02/16/20 02/16/20 02/16/20 16:15 16:15 19:40 WBC RBC Hgb Hct MCV MCH MCHC RDW Plt Count Neut % (Auto) Lymph % (Auto) Fre[place] % (Auto) Eos % (Auto) Baso % (Auto) Neut # (Auto) Lymph # (Auto) [place] # (Auto) Eos # (Auto) Baso # (Auto) ESR PT INR APTT ABG pH ABG pCO2 ABG pO2 ABG HCO3 ABG Total CO2 ABG O2 Saturation ABG Base Excess FiO2 Sodium Potassium Chloride Carbon Dioxide BUN Creatinine Estimated GFR BUN/Creatinine Ratio Glucose Hemoglobin A1c Lactate Calcium Phosphorus Magnesium Iron 203 H TIBC 203 L % Saturation 100 H Transferrin 159 L Ferritin Total Bilirubin AST ALT Alkaline Phosphatase Total Creatine Kinase CK-MB (CK-2) CK-MB (CK-2) Rel Index Troponin I C-Reactive Protein NT-Pro-B Natriuret Pep Total Protein Albumin Globulin Albumin/Globulin Ratio Triglycerides Cholesterol LDL Cholesterol, Calc HDL Cholesterol Procalcitonin TSH Urine Color Urine Appearance Urine pH Ur Specific Lorman Urine Protein Urine Glucose (UA) Urine Ketones Urine Occult Blood Urine Nitrate Urine Bilirubin Ur Bilirubin Confirm Urine Urobilinogen Ur Leukocyte Esterase Urine RBC Urine WBC Ur Squamous Epith Cells Amorphous Sediment Urine Bacteria Hyaline Casts Ur Culture Indicated? Nasal Screen MRSA (PCR) Salicylates Acetaminophen Ketones Chlamy pneumoniae PCR Not detected Adenovirus (PCR) Not detected B.parapertussis DNA PCR Not detected Coronavirus OC43 (PCR) Not detected Coronavirus HKU1 (PCR) Not detected Coronavirus 229E (PCR) Not detected COVID-19 PCR Coronavirus NL63 (PCR) Not detected Hep Bs Antigen Hepatitis C Antibody HIV 1&2 Ab/P24 Ag 4thGn Negative Human Metapneumovir PCR Not detected Influenza Type A (PCR) Not detected Influenza Type B (PCR) Not detected M. pneumoniae (PCR) Not detected Parainfluenza 1 (PCR) Not detected Parainfluenza 2 (PCR) Not detected Parainfluenza 3 (PCR) Not detected Parainfluenza 4 (PCR) Not detected RSV (PCR) Not detected Entero/Rhino (PCR) Not detected 02/16/20 02/16/20 02/16/20 19:40 20:09 20:09 WBC RBC Hgb Hct MCV MCH MCHC RDW Plt Count Neut % (Auto) Lymph % (Auto) Fre[place] % (Auto) Eos % (Auto) Baso % (Auto) Neut # (Auto) Lymph # (Auto) [place] # (Auto) Eos # (Auto) Baso # (Auto) ESR PT INR APTT ABG pH 7.20 L* ABG pCO2 17.2 L* ABG pO2 101 H ABG HCO3 7 L ABG Total CO2 7 L ABG O2 Saturation 96 ABG Base Excess -21.0 L FiO2 21 Sodium 133 L Potassium 3.8 D Chloride 103 Carbon Dioxide 11 L BUN 17 Creatinine 0.79 Estimated GFR > 60.0 BUN/Creatinine Ratio 21.5 Glucose 107 Hemoglobin A1c Lactate Calcium 8.9 Phosphorus Magnesium Iron TIBC % Saturation Transferrin Ferritin Total Bilirubin 1.6 H AST 261 H ALT 98 H Alkaline Phosphatase 201 H Total Creatine Kinase CK-MB (CK-2) CK-MB (CK-2) Rel Index Troponin I C-Reactive Protein NT-Pro-B Natriuret Pep Total Protein 8.3 H Albumin 4.4 Globulin 3.9 Albumin/Globulin Ratio 1.1 Triglycerides Cholesterol LDL Cholesterol, Calc HDL Cholesterol Procalcitonin TSH Urine Color Urine Appearance Urine pH Ur Specific Lorman Urine Protein Urine Glucose (UA) Urine Ketones Urine Occult Blood Urine Nitrate Urine Bilirubin Ur Bilirubin Confirm Urine Urobilinogen Ur Leukocyte Esterase Urine RBC Urine WBC Ur Squamous Epith Cells Amorphous Sediment Urine Bacteria Hyaline Casts Ur Culture Indicated? Nasal Screen MRSA (PCR) Salicylates 1.1 Acetaminophen < 10 L Ketones Chlamy pneumoniae PCR Adenovirus (PCR) B.parapertussis DNA PCR Coronavirus OC43 (PCR) Coronavirus HKU1 (PCR) Coronavirus 229E (PCR) COVID-19 PCR Negative Coronavirus NL63 (PCR) Hep Bs Antigen Hepatitis C Antibody HIV 1&2 Ab/P24 Ag 4thGn Human Metapneumovir PCR Influenza Type A (PCR) Influenza Type B (PCR) M. pneumoniae (PCR) Parainfluenza 1 (PCR) Parainfluenza 2 (PCR) Parainfluenza 3 (PCR) Parainfluenza 4 (PCR) RSV (PCR) Entero/Rhino (PCR) 02/16/20 02/16/20 02/17/20 21:50 22:53 04:30 WBC RBC Hgb Hct MCV MCH MCHC RDW Plt Count Neut % (Auto) Lymph % (Auto) [place] % (Auto) Eos % (Auto) Baso % (Auto) Neut # (Auto) Lymph # (Auto) [place] # (Auto) Eos # (Auto) Baso # (Auto) ESR PT INR APTT ABG pH ABG pCO2 ABG pO2 ABG HCO3 ABG Total CO2 ABG O2 Saturation ABG Base Excess FiO2 Sodium Potassium Chloride Carbon Dioxide BUN Creatinine Estimated GFR BUN/Creatinine Ratio Glucose Hemoglobin A1c 4.6 Lactate Calcium Phosphorus Magnesium Iron TIBC % Saturation Transferrin Ferritin Total Bilirubin AST ALT Alkaline Phosphatase Total Creatine Kinase CK-MB (CK-2) CK-MB (CK-2) Rel Index Troponin I C-Reactive Protein NT-Pro-B Natriuret Pep Total Protein Albumin Globulin Albumin/Globulin Ratio Triglycerides Cholesterol LDL Cholesterol, Calc HDL Cholesterol Procalcitonin TSH Urine Color Dark yellow Urine Appearance Clear Urine pH 7.0 Ur Specific Lorman <=1.005 Urine Protein 2+ H Urine Glucose (UA) Negative Urine Ketones 3+ H Urine Occult Blood 3+ H Urine Nitrate Negative Urine Bilirubin 2+ H Ur Bilirubin Confirm Positive H Urine Urobilinogen 1.0 Ur Leukocyte Esterase Negative Urine RBC 5-10/hpf H Urine WBC None seen Ur Squamous Epith Cells 1-5 /hpf Amorphous Sediment 1+ Urine Bacteria Occasional (0-1) Hyaline Casts 0-1/lpf Ur Culture Indicated? Cult not indicated Nasal Screen MRSA (PCR) Negative for mrsa Salicylates Acetaminophen Ketones Chlamy pneumoniae PCR Adenovirus (PCR) B.parapertussis DNA PCR Coronavirus OC43 (PCR) Coronavirus HKU1 (PCR) Coronavirus 229E (PCR) COVID-19 PCR Coronavirus NL63 (PCR) Hep Bs Antigen Hepatitis C Antibody HIV 1&2 Ab/P24 Ag 4thGn Human Metapneumovir PCR Influenza Type A (PCR) Influenza Type B (PCR) M. pneumoniae (PCR) Parainfluenza 1 (PCR) Parainfluenza 2 (PCR) Parainfluenza 3 (PCR) Parainfluenza 4 (PCR) RSV (PCR) Entero/Rhino (PCR) 02/17/20 02/17/20 02/17/20 04:30 04:30 04:30 WBC RBC Hgb Hct MCV MCH MCHC RDW Plt Count Neut % (Auto) Lymph % (Auto) [place] % (Auto) Eos % (Auto) Baso % (Auto) Neut # (Auto) Lymph # (Auto) [place] # (Auto) Eos # (Auto) Baso # (Auto) ESR PT INR APTT ABG pH ABG pCO2 ABG pO2 ABG HCO3 ABG Total CO2 ABG O2 Saturation ABG Base Excess FiO2 Sodium Potassium Chloride Carbon Dioxide BUN Creatinine Estimated GFR BUN/Creatinine Ratio Glucose Hemoglobin A1c Lactate Calcium Phosphorus Magnesium Iron TIBC % Saturation Transferrin Ferritin Total Bilirubin AST ALT Alkaline Phosphatase Total Creatine Kinase CK-MB (CK-2) CK-MB (CK-2) Rel Index Troponin I C-Reactive Protein NT-Pro-B Natriuret Pep Total Protein Albumin Globulin Albumin/Globulin Ratio Triglycerides 120 Cholesterol 137 L LDL Cholesterol, Calc 52 HDL Cholesterol 61 H Procalcitonin TSH 3.35 Urine Color Urine Appearance Urine pH Ur Specific Lorman Urine Protein Urine Glucose (UA) Urine Ketones Urine Occult Blood Urine Nitrate Urine Bilirubin Ur Bilirubin Confirm Urine Urobilinogen Ur Leukocyte Esterase Urine RBC Urine WBC Ur Squamous Epith Cells Amorphous Sediment Urine Bacteria Hyaline Casts Ur Culture Indicated? Nasal Screen MRSA (PCR) Salicylates Acetaminophen Ketones Chlamy pneumoniae PCR Adenovirus (PCR) B.parapertussis DNA PCR Coronavirus OC43 (PCR) Coronavirus HKU1 (PCR) Coronavirus 229E (PCR) COVID-19 PCR Coronavirus NL63 (PCR) Hep Bs Antigen Negative Hepatitis C Antibody Negative HIV 1&2 Ab/P24 Ag 4thGn Human Metapneumovir PCR Influenza Type A (PCR) Influenza Type B (PCR) M. pneumoniae (PCR) Parainfluenza 1 (PCR) Parainfluenza 2 (PCR) Parainfluenza 3 (PCR) Parainfluenza 4 (PCR) RSV (PCR) Entero/Rhino (PCR) 02/17/20 02/17/20 02/17/20 04:30 04:30 04:30 WBC 2.3 L D RBC 3.49 L Hgb 12.0 Hct 34.1 L MCV 97.6 MCH 34.4 H MCHC 35.3 RDW 19.2 H Plt Count 46 L Neut % (Auto) 73.2 Lymph % (Auto) 14.4 L [place] % (Auto) 12.1 Eos % (Auto) 0.1 L Baso % (Auto) 0.2 Neut # (Auto) 1700 Lymph # (Auto) 300 L [place] # (Auto) 300 Eos # (Auto) 0 Baso # (Auto) 0 ESR PT INR APTT ABG pH ABG pCO2 ABG pO2 ABG HCO3 ABG Total CO2 ABG O2 Saturation ABG Base Excess FiO2 Sodium 133 L Potassium 4.4 Chloride 106 Carbon Dioxide 16 L BUN 16 Creatinine 0.64 Estimated GFR > 60.0 BUN/Creatinine Ratio 25.0 H Glucose 151 H Hemoglobin A1c Lactate Calcium 8.7 Phosphorus < 0.5 L* Magnesium 1.6 Iron TIBC % Saturation Transferrin Ferritin Total Bilirubin 1.0 AST 189 H ALT 76 H Alkaline Phosphatase 169 H Total Creatine Kinase CK-MB (CK-2) CK-MB (CK-2) Rel Index Troponin I C-Reactive Protein NT-Pro-B Natriuret Pep Total Protein 6.9 Albumin 3.4 L Globulin 3.5 Albumin/Globulin Ratio 1.0 Triglycerides Cholesterol LDL Cholesterol, Calc HDL Cholesterol Procalcitonin 0.32 TSH Urine Color Urine Appearance Urine pH Ur Specific Lorman Urine Protein Urine Glucose (UA) Urine Ketones Urine Occult Blood Urine Nitrate Urine Bilirubin Ur Bilirubin Confirm Urine Urobilinogen Ur Leukocyte Esterase Urine RBC Urine WBC Ur Squamous Epith Cells Amorphous Sediment Urine Bacteria Hyaline Casts Ur Culture Indicated? Nasal Screen MRSA (PCR) Salicylates Acetaminophen Ketones Chlamy pneumoniae PCR Adenovirus (PCR) B.parapertussis DNA PCR Coronavirus OC43 (PCR) Coronavirus HKU1 (PCR) Coronavirus 229E (PCR) COVID-19 PCR Coronavirus NL63 (PCR) Hep Bs Antigen Hepatitis C Antibody HIV 1&2 Ab/P24 Ag 4thGn Human Metapneumovir PCR Influenza Type A (PCR) Influenza Type B (PCR) M. pneumoniae (PCR) Parainfluenza 1 (PCR) Parainfluenza 2 (PCR) Parainfluenza 3 (PCR) Parainfluenza 4 (PCR) RSV (PCR) Entero/Rhino (PCR) 02/17/20 04:30 WBC RBC Hgb Hct MCV MCH MCHC RDW Plt Count Neut % (Auto) Lymph % (Auto) [place] % (Auto) Eos % (Auto) Baso % (Auto) Neut # (Auto) Lymph # (Auto) [place] # (Auto) Eos # (Auto) Baso # (Auto) ESR PT INR APTT ABG pH ABG pCO2 ABG pO2 ABG HCO3 ABG Total CO2 ABG O2 Saturation ABG Base Excess FiO2 Sodium Potassium Chloride Carbon Dioxide BUN Creatinine Estimated GFR BUN/Creatinine Ratio Glucose Hemoglobin A1c Lactate Calcium Phosphorus Magnesium Iron TIBC % Saturation Transferrin Ferritin 1350 H Total Bilirubin AST ALT Alkaline Phosphatase Total Creatine Kinase CK-MB (CK-2) CK-MB (CK-2) Rel Index Troponin I C-Reactive Protein NT-Pro-B Natriuret Pep Total Protein Albumin Globulin Albumin/Globulin Ratio Triglycerides Cholesterol LDL Cholesterol, Calc HDL Cholesterol Procalcitonin TSH Urine Color Urine Appearance Urine pH Ur Specific Lorman Urine Protein Urine Glucose (UA) Urine Ketones Urine Occult Blood Urine Nitrate Urine Bilirubin Ur Bilirubin Confirm Urine Urobilinogen Ur Leukocyte Esterase Urine RBC Urine WBC Ur Squamous Epith Cells Amorphous Sediment Urine Bacteria Hyaline Casts Ur Culture Indicated? Nasal Screen MRSA (PCR) Salicylates Acetaminophen Ketones Chlamy pneumoniae PCR Adenovirus (PCR) B.parapertussis DNA PCR Coronavirus OC43 (PCR) Coronavirus HKU1 (PCR) Coronavirus 229E (PCR) COVID-19 PCR Coronavirus NL63 (PCR) Hep Bs Antigen Hepatitis C Antibody HIV 1&2 Ab/P24 Ag 4thGn Human Metapneumovir PCR Influenza Type A (PCR) Influenza Type B (PCR) M. pneumoniae (PCR) Parainfluenza 1 (PCR) Parainfluenza 2 (PCR) Parainfluenza 3 (PCR) Parainfluenza 4 (PCR) RSV (PCR) Entero/Rhino (PCR) Assessment & Plan Assessment & Plan narrative: Morenita Watt is a 64 year old female with PMH of EtOH use, chronic neuropathy, and vision problems who presents with primarily nausea and vomiting for the past 1-2 days and shortness of breath progressive over the past week. She was admitted to the ICU initially for treatment of possible DKA. However this is less likely given A1c of 4.6%. Insulin infusion 1. Anion gap metabolic acidosis, present on admission, appropriately compensated - suspect more likely alcoholic ketoacidosis or starvation ketosis moreso than DKA. however patient does not have reliable medical follow up and did have a glucose of 239 on admission. Could not completely rule out DKA and therefore was treated on an insulin drip overnight. Her AG and acidosis improved and insulin was discontinued the next morning. She will continue to be given fluid hydration. - tylenol and salicylate levels negative. - last EtOH 2 days prior to admission. - initial LA 2.5, improved to 1.5 after initial fluids - DKA unlikely with A1c of 4.6%. - Phos now profoundly low, have stopped insulin infusion, will replete phos. Worry for refeeding syndrome. - infectious etiologies include possible CAP, viral panel negative, COVID 19 negative x1. 2. EtOH use - last drink was 2 days ago. patient with history of severe withdrawal episode approx 6 years ago requiring intubation and where she suffered a seizure. - CIWA protocol with prn ativan as needed. - started oral thiamine replacement. 3. Acute hepatitis, present on admission - likely secondary to alcohol use. However given severity of transferrin elevation consider iron overload. - furhter consider ischemia given dehydration and acidosis as above - continue to follow hepatic function labs. Discriminant function of 2. No indication for steroids. - hepatic function is improving with fluid resusciatation and transferrin has decreased slightly to 1350. 4. Elevated Ferritin - TSAT of 100%. Have reached out to hematology for possible consultation, their clinic may be closed today. - suspected to be elevated given alcoholic liver disease, and possible this is reactive to an underlying infective process. - UA negative for infectious source but microscopic hematuria. -B12 level added for tomorrow AM labs. 5. Dehydration - secondary to nausea, vomiting and decreased PO intake. - will rehydrate with D5 NS. 6. Bilateral pulmonary ground glass opacities, possible pneumonia - patient reports dyspnea on exertion over the past 6 months, worsening recently. Ground glass opacities are non-specific. - initial COVID 19 testing negative. Complete viral panel negative. - obtain blood cultures, will treat empirically for CAP with CTX and azithro after blood cultures are drawn given severity of metabolic acidosis on presentation and CT findings. Mild procalcitonin elevation also indicative of possible bacterial infection. - may also represent a more chronic lung disease. - have ordered TTE to see if this could be fluid as well and to see if there is a component of heart failure, but given improvement in condition with fluid resuscitation this is felt to be less likely. 7. Thrombocytopenia - possibly secondary to underlying liver disease or EtOH use. Seeming more likely after hydration and now with leukopenia as well. - continue to follow. transfuse for plt <20, <50 if bleeding. - hold DVT ppx. - consider hematology evaluation as noted above - have added B12 testing tomorrow AM. - HIV testing negative. 8. hyponatremia, acute, present on admission - likely secondary to hypovolemia. Continue to follow. Mild only at 133 on admission. Code: Full, surrogate decision maker is the patient's DVT: SCDs given thrombocytopenia Dispo: admitted to the ICU for insulin infusion initially, stable for floor today.
[2020-02-17] MEDS: SODIUM,POTASSIUM PHOSPHATES PACKET 1 EACH PO (08:52)
[2020-02-17 09:54] LABS: PCO2 ABG 25.5 mmHg (35-45); pH ABG 7.35 (7.35-7.45)
[2020-02-17 09:56] LABS: HCO3 ABG 14 mmol/L (22-26); Oxygen Saturation ABG 95 % (95-100); PO2 ABG 76 mmHg (80-100); TCO2 ABG 15 mmol/L (21-31)
[2020-02-17 09:57] LABS: Fractionated Inspired Oxygen 0.21
--- NOTE | 2020-02-17 12:25 | DI.ECHO.S_ITS ---
[facility]---------+ [facility] +---------+ : : [address] : : : : [id number] : : : : Phone: [phone]+ Echocardiogram Report + + :Name: MARCO A PERERA Study Date: 02/17/2020 Height: 66 in : :[facility] Weight: 182 lb : : Gender: Female BSA: 1.9 m2 : :: 1955 Age: 64 yrs BP: 124/63 mmHg: :Reason For Study: SOB : : Performed By: Tyler Boston : :Referring: MARYAN FLORENCE : + + Interpretation Summary The left ventricle is normal in size. The ejection fraction is estimated to be 60-65%. The right ventricle is mildly dilated. The right ventricular systolic function is normal. The right ventricle appears to be hypertrophied. A bicuspid aortic valve cannot be excluded. There is mildly reduced leaflet mobility. The peak aortic velocity is 2.71 m/sec. The aortic valve mean gradient is 17.9 mmHg. There is mild aortic stenosis. There is moderate tricuspid regurgitation. The right ventricular systolic pressure is estimated to be at least 61 mmHg based on an estimated right atrial pressure of 3 mm Hg. There is moderate-severe pulmonary hypertension. Mild atherosclerotic plaque(s) in the aortic arch. Procedure: A two-dimensional transthoracic echocardiogram with color flow and Doppler was performed. The study quality was technically difficult. There is no prior echocardiogram noted for this patient. The patient was in normal sinus rhythm during the exam. The patient was tachycardic with a heart rate of 98-113 beats per minute. Left Ventricle: The left ventricle is normal in size. There is normal left ventricular wall thickness. There is no thrombus. The ejection fraction is estimated to be 60-65%. There are no focal wall motion abnormalities. Diastolic parameters suggest a relaxation abnormality of the left ventricle, consistent with probable normal filling pressures. Right Ventricle: The right ventricle is mildly dilated. The right ventricle appears to be hypertrophied. The right ventricular systolic function is normal. Atria: Both atria are normal in size. The interatrial septum is intact with no evidence for an atrial septal defect. Mitral Valve: There is mild mitral annular calcification. There is trace mitral regurgitation. Aortic Valve: The aortic valve is not well visualized. The aortic valve is mildly calcified. There is mildly reduced leaflet mobility. A bicuspid aortic valve cannot be excluded. The peak aortic velocity is 2.71 m/sec. The aortic valve mean gradient is 17.9 mmHg. The calculated aortic valve area is 1.5 cm2. There is mild aortic stenosis. No aortic regurgitation is present. Tricuspid Valve: The tricuspid valve is not well visualized, but is grossly normal. There is moderate tricuspid regurgitation. The right ventricular systolic pressure is estimated to be at least 61 mmHg based on an estimated right atrial pressure of 3 mm Hg. There is moderate-severe pulmonary hypertension. Pulmonic Valve: The pulmonic valve is not well visualized. Great Vessels: The aortic root is normal size. There is aortic root sclerosis/calcification. The dimensions of the ascending aorta are normal. Mild atherosclerotic plaque(s) in the aortic arch. The pulmonary artery is normal size. The IVC is of normal diameter and collapses greater than 50% with a sniff. This suggests a low right atrial pressure of 3 mm Hg. Pericardium/ Pleura There is no pericardial effusion. There is an anterior echo-free space consistent with a fat pad. There is no pleural effusion. MMode/2D Measurements & Calculations LVIDd: 4.7 cm LVOT diam: 2.1 cm LVIDs: 3.2 cm Ao root diam: 2.6 cm FS: 32.8 % asc Aorta Diam: 2.8 cm EPSS: 0.56 cm Ao Arch Diam (Prox Trans): 2.4 cm IVSd: 1.1 cm LVPWd: 0.98 cm LV alanis. diameter/BSA (cm/m^2): 2.5 LV sys. diameter/BSA (cm/m^2): 1.6 LA dimension: 3.9 cm RA long axis: 4.9 cm LA A2 area: 17.9 cm2 RA area: 12.8 cm2 LA A4 area: 16.9 cm2 RA vol: 28.4 ml LA length (vol): 4.8 cm RA : 14.8 ml/m2 LA vol: 53.3 ml IVC diam: 1.5 cm LA vol index: 27.7 ml/m2 RVD1 (basal): 3.6 cm RVD2 (mid): 3.5 cm TAPSE: 2.0 cm Doppler Measurements & Calculations Ao V2 max: 271.3 cm/sec LVOT Max Loy: 114.6 cm/sec Ao V2 mean: 203.8 cm/sec LV V1 max P.3 mmHg Ao max P.4 mmHg LV V1 VTI: 23.3 cm Ao mean P.9 mmHg DILMA(I,D): 1.8 cm2 Ao V2 VTI: 44.2 cm DILMA(V,D): 1.5 cm2 sev ratio: 0.53 DILMA indexed to BSA (cm^2/m^2): 0.94 MV E max loy: 66.6 cm/sec TR max loy: 381.3 cm/sec MV A max loy: 98.6 cm/sec TR max P.2 mmHg MV E/A: 0.67 PA V2 max: 129.5 cm/sec Med Peak E' Loy: 6.1 cm/sec PA V2 mean: 91.8 cm/sec E/E' med: 10.9 PA mean P.7 mmHg Lat Peak E' Loy: 6.6 cm/sec PA pr(Accel): 48.2 mmHg E/E' lat: 10.0 E/e' average: 10.5 MV dec time: 0.13 sec SV(LVOT): 80.2 ml Reading Physician:06:23 PM
[2020-02-17 13:08] LABS: Alanine Aminotransferase 63 IU/L (<35); Albumin 3.3 g/dL (3.5-5.0); Alkaline Phosphatase 166 U/L (38-126); Aspartate Aminotransferase 157 IU/L (14-36); Blood Urea Nitrogen 13 mg/dL (7-17); Calcium 8.8 mg/dL (8.4-10.2); Carbon Dioxide 17 mmol/L (22-32); Chloride 107 mmol/L (98-107); Estimated Glomerular Filt Rate > 60.0 mL/min (>60); Globulin 3.3 g/dL (1.7-4.1); Glucose 177 mg/dL (80-110); HEMOLYSIS < 15 (0-50); Potassium 3.4 mmol/L (3.4-5.1); Sodium 133 mmol/L (137-145); Total Protein 6.6 g/dL (6.3-8.2)
[2020-02-17 13:10] LABS: Phosphorous < 0.5 mg/dL (2.8-4.1)
--- NOTE | 2020-02-17 14:05 | CM.DANOTE ---
Patient is a 64 year old female who was admitted on 02/16/20 for SOB. Pt has [employer] MCR ADV for insurance and her PCP is not listed. EMR was reviewed. Per MD, pt with hx of ETOH and relapse with withdrawal and seizure and pt on CIWA for ETOH and possible DKA. Per RN, pt off insulin drip now and very unsteady and weak requiring a fair amount of assist but on room air now but SOB with exertion. SW met bedside with pt and spouse and explained role and pt confirms that she lives at home in [place] with her and is mostly independent with ADL's at baseline but has become increasingly weak and unsteady the past few days. Pt does not drive and denies any hx of HH or SNF and states her spouse is her informal DPOA. They deny any other family local besides pt's brother yves who lives near and can assist some if needed. SW discussed possible needs pending pt's progress and eventual work with PT when more medically stable to determine home with HH vs SNF. SW discussed HH services and SNF rehab and pt and spouse would be agreeable with either pending pt's needs at discharge. SW inquired about pt's alcohol use and pt and spouse were somewhat vague and did not provide much details but were agreeable with participating in discussion. Pt states she has been an alcohol drinker off and on for many years and denies any hx of CD tx although RN reports that pt has stated she went to CD tx many years ago and maybe had around 6 years of sobriety. Pt confirms that she drinks around half gallon of vodka daily since she relapsed in November around her birthday. Pt states she typically abstains from alcohol on her own without the use of formal treatment or counseling. Pt confirms that she sometimes drinks due to anxiety and depression and that COVID 19 pandemic has not helped with her alcohol use. SW discussed the benefit to utilizing a trained CD counselor to help with identifying triggers and problem solving ways to abstain from drinking as pt was able to express that her goal is to not drink anymore. Pt discussed briefly that a year ago she had alcohol withdrawal and seizure at [facility] and had to be intubated and transferred to [facility] but was able to d/c home without SNF or HH and was not established with CD treatment and pt states I never want that to happen again. Pt had flat affect but unsure if due to pt's current medications and grogginess. Pt seems to be contemplative regarding treatment and medical impact that alcohol has on her system and not quite motivated yet for treatment but willing to consider and for community resources to review towards discharge planning. Plan: SW to follow closely after PT orders likely tomorrow towards determining SNF vs HH at d/c and to further discuss and provide community resources for ETOH at discharge. If SNF, pt has [employer] MCR and will need auth but no PT/OT notes available at this time as pt not medically appropriate for therapy. HUNTER Azul Discharge Planning/Care Management CM Discharge Assessment Start: 02/17/20 14:03 Freq: Status: Active Protocol: Document 02/17/20 14:03 BF (Rec: 02/17/20 14:05 [id number]) Discharge Planning Assessment Assigned Lead Javascript Developer HUNTER Bright DPOA/Assigned Designee Name spouse Mars Contact Information [phone] Advance Directives? No Advance Directives on File No History Provided By Patient,Significant Other, Medical Record Has Patient been admitted in last 30 No days? Prior Living Arrangements House Household Members spouse Type of transporation used prior to Relies on Others admit Independent with ADL's Yes: mostly up until the past week or so Is patient alert and oriented? Yes Needs Assistance With Managing Medications,Home Chores / Shopping Caregiver for Another No Patient/Family Preference [facility] Comment Waiting for PT initial eval and recommendations to determine SNF vs HH Barriers to Discharge No Discharge Plan [facility] Transportation Arrangement Spouse bedside and can provide transport if safe for home vs facility van for SNF Referrals Initiated [facility] Medicare Choice List Provided Yes Has Agency SNF been contacted Yes Comment [facility] will review Whiteboard Updated in Patient Room with Yes name and ext. # of Lead Javascript Developer Review Status In Process Please Provide Date Initial DC 02/17/20 Assessment Was Performed Next Review Type Continued Stay Review
--- NOTE | 2020-02-17 14:07 | PC.NURSE ---
pt vague with her complaints and responses- denies pain but obviously profoundly weak and requiring assist to BR/BSC. URGENCY R/T BOWELS- SHE WAS INCONT OF LOOSE BROWN STOOL ON HER WAY TO BR- INSULIN GTT OFF AND IVF CONTINUES AT 150CC/H- continuing to monitor labs and phosphorous remains critically low and MD aware
[2020-02-17] MEDS: POTASSIUM PHOSPHATE 15 MMOL in DEXTROSE 5% IN WATER 250 ML 63.75 ML IV (19:32)
[2020-02-17] MEDS: SODIUM CHLORIDE 0.9% FLUSH 10 ML IV (19:54)
[2020-02-17] MEDS: CEFTRIAXONE 1 GM/50 ML FROZ.PIGGY IV (21:05)
[2020-02-17] MEDS: AZITHROMYCIN 250 MG in DEXTROSE 5% IN WATER 250 ML IV (21:52)
[2020-02-18 00:18] VITALS: BP 138/71; PULSE 104; RESP 19; TEMP 36.7; O2SAT 99
[2020-02-18 00:39] LABS: Hepatitis B Core Antibody Positive (Negative)
[2020-02-18] MEDS: DEXTROSE 5%-0.9% NS 1,000 ML 150 ML IV ×2 (04:03→10:43)
[2020-02-18 04:50] VITALS: BP 155/74; PULSE 98; RESP 25; TEMP 37.6; O2SAT 100
[2020-02-18 05:12] LABS: Hepatitis B Surf Ab Qualitativ Reactive (.)
[2020-02-18 05:21] LABS: Hematocrit 31.8 % (36-46); Hemoglobin 11.5 g/dL (12.0-16.0); Mean Corpuscular Hemoglobin 34.7 PG (26-34); Mean Corpuscular Volume 96.2 fL (80-100); Platelet Count 43 X10^3/uL (150-400); Red Cell Distribution Width 18.6 % (11.6-14.8)
[2020-02-18 05:26] LABS: Alanine Aminotransferase 51 IU/L (<35); Albumin 3.2 g/dL (3.5-5.0); Alkaline Phosphatase 146 U/L (38-126); Aspartate Aminotransferase 119 IU/L (14-36); BUN Creatinine Ratio 14.3 (6-22); Bilirubin Total 0.8 mg/dL (0.2-1.3); Blood Urea Nitrogen 6 mg/dL (7-17); Calcium 8.6 mg/dL (8.4-10.2); Carbon Dioxide 19 mmol/L (22-32); Chloride 109 mmol/L (98-107); Estimated Glomerular Filt Rate > 60.0 mL/min (>60); Globulin 3.3 g/dL (1.7-4.1); Glucose 171 mg/dL (80-110); HEMOLYSIS < 15 (0-50); Magnesium 1.1 mg/dL (1.6-2.3); Potassium 2.8 mmol/L (3.4-5.1); Sodium 134 mmol/L (137-145); Total Protein 6.5 g/dL (6.3-8.2)
[2020-02-18 05:30] LABS: Phosphorous < 0.5 mg/dL (2.8-4.1)
[2020-02-18 05:31] LABS: Add Manual Diff / Slide Review YES; White Blood Cell Count 1.4 X10^3/uL (4.5-11.0)
[2020-02-18 05:44] LABS: Anisocytosis 1+; Neutrophils Absolute Manual 966 /uL (3000-5900); Total Cells Counted 100
[2020-02-18 05:48] LABS: Procalcitonin 0.18 ng/mL (<0.5)
[2020-02-18] MEDS: POTASSIUM PHOSPHATE 30 MMOL in DEXTROSE 5% IN WATER 250 ML 65 ML IV (06:26)
[2020-02-18 06:29] LABS: Vitamin B12 Reflex MMA if <400 484 pg/mL (239-931)
[2020-02-18] MEDS: MAGNESIUM SULFATE 2 GM/50 ML PIGGYBACK IV ×2 (06:32→17:36)
--- NOTE | 2020-02-18 06:42 | PC.NURSE ---
[facility] Note-Patient has been awake most of night up to BSC with loose stools, speaks and moves slowly, but is oriented x3, CIWA is 3. Denies pain or nausea. ST 100 up to 120s with activity. K+Phos complete at midnight and another ordered in am for phos <0.5, Mg+ sulfate also started for Mg+ 1.1, other critical labs reported to Dr Lobo, documentation in RN intervention.
[2020-02-18 07:38] VITALS: BP 137/72; PULSE 108; RESP 21; TEMP 37.7; O2SAT 94
[2020-02-18] MEDS: SODIUM,POTASSIUM PHOSPHATES PACKET 1 EACH PO (08:46)
[2020-02-18 11:05] VITALS: BP 142/80; PULSE 101; RESP 26; TEMP 37.6; O2SAT 100
--- NOTE | 2020-02-18 11:08 | PC.NURSE ---
Addendum entered by Marilyn Dorado R.N. 02/18/20 15:41: Dr. Luque notified at 1455 of critical and low lab values from 1345 lab draw. As documented under worklist of critical notification. to place new orders. Addendum entered by Marilyn Dorado R.N. 02/18/20 14:11: Pt's Mars was in to visit today. Pt has had small loose BM's mixed with urine and unable to get sample. Will have pt positioned different on BSC again and try for BM only sample. LINOLEUM LAYER aware and micro dept aware of still needing sample. PRN Tylenol given for earlier temp of 99.7 temporal. Order placed for full liquid diet for dinner per AAT diet order. Original Note: Day Shift- Pt A&OX3-4, unknown to date/day of week. Pt stated it was the 22 of February. Pleasant, flat affect, cooperative with care. CIWA score is 1 for slight tremor to BUE with elevation. Pt stated having a visual hallucination last night. Stating she had thought the the blue emesis bags on the wall in pt room by closet was a woman standing in the corner. No visual or auditory hallucinations this morning. Pt having urgency and frequency with stools with incontinence. Pt OOB to recliner chair this AM and has been to BSC at least 5 times thus far. Pt is voiding hudson urine, at times mixed with loose brown stool. At AM rounds with Dr. Luque around 0945, Dr made aware of loose stool frequency, CIWA score, Magnesium, Potassium, Phosphorus, and WBC from this AM lab draw and the IV replacements previously ordered. Repeat lab draw? also medication for diarrhea? collect a stool sample?, Alcohol withdraw vitamins? Thiamine? Made aware of HR elevated to mid 120's and low 100's with rest. No new orders at this time. to assess. High fall risk precautions in place, bed/chair alarm on.
--- NOTE | 2020-02-18 12:51 | PM.PN.1 ---
Subjective Subjective Date Patient Seen: 02/18/20 Interval history: Morenita Watt is a 64 year old female with PMH of EtOH use, chronic neuropathy, and vision problems who presents with nausea and vomiting for the past 1-2 days, profound weakness and shortness of breath progressive over the past week. She had not eaten over the past week and had a severe anion gap metabolic acidosis likely due to starvation ketosis. She has persistent severe electrolyte deficiencies. Patient remains profoundly weak. She is having low-grade fever. She is complaining of her neuropathy pain since she has been off her duloxetine the past couple of days. She has been having small frequent stools. She is tolerating clear liquids. Exam Vital Signs (past 8 hours): - 02/18/20 07:38 02/18/20 11:05 Temperature 99.8 F H 99.7 F H Pulse Rate 108 H 101 H Respiratory Rate 21 26 H Blood Pressure 137/72 142/80 H Pulse Oximetry 94 100 Oxygen Delivery Method Room Air Oxygen Flow Rate 0 Narrative Exam Narrative: General: Alert and pleasant female sitting in bedside chair and in no acute distress Lungs: Clear to auscultation Heart: Regular rhythm Abdomen: Soft, mildly tender bilaterally Extremities: Dry, no edema Neurological: Sensorium intact, nonfocal weakness Objective Labs Result Diagrams: 02/18/20 04:49 02/18/20 04:49 Labs: Laboratory Results - last 24 hr 02/17/20 02/17/20 02/17/20 04:30 04:30 12:44 WBC RBC Hgb Hct MCV MCH MCHC RDW Plt Count Neut % (Auto) Lymph % (Auto) [place] % (Auto) Eos % (Auto) Baso % (Auto) Lymph # (Auto) [place] # (Auto) Baso # (Auto) Total Counted Seg Neutrophils % Band Neutrophils % Lymphocytes % (Manual) Monocytes % (Manual) Neutrophils # (Manual) RBC Morphology Anisocytosis Sodium 133 L Potassium 3.4 Chloride 107 Carbon Dioxide 17 L BUN 13 Creatinine 0.50 L Estimated GFR > 60.0 BUN/Creatinine Ratio 26.0 H Glucose 177 H Calcium 8.8 Phosphorus < 0.5 L* Magnesium Total Bilirubin 1.0 AST 157 H ALT 63 H Alkaline Phosphatase 166 H Total Protein 6.6 Albumin 3.3 L Globulin 3.3 Albumin/Globulin Ratio 1.0 Vitamin B12 Procalcitonin Hep Bs Antibody Reactive Hep B Core Total Ab Positive A 02/18/20 02/18/20 02/18/20 04:49 04:49 04:49 WBC 1.4 L* RBC 3.30 L Hgb 11.5 L Hct 31.8 L MCV 96.2 MCH 34.7 H MCHC 36.0 RDW 18.6 H Plt Count 43 L Neut % (Auto) Not Reportable Lymph % (Auto) Not Reportable [place] % (Auto) Not Reportable Eos % (Auto) Not Reportable Baso % (Auto) Not Reportable Lymph # (Auto) Not Reportable [place] # (Auto) Not Reportable Baso # (Auto) Not Reportable Total Counted 100 Seg Neutrophils % 67.0 Band Neutrophils % 2.0 L Lymphocytes % (Manual) 22.0 L Monocytes % (Manual) 9.0 Neutrophils # (Manual) 966 L RBC Morphology See below Anisocytosis 1+ H Sodium 134 L Potassium 2.8 L Chloride 109 H Carbon Dioxide 19 L BUN 6 L Creatinine 0.42 L Estimated GFR > 60.0 BUN/Creatinine Ratio 14.3 Glucose 171 H Calcium 8.6 Phosphorus < 0.5 L* Magnesium 1.1 L Total Bilirubin 0.8 AST 119 H ALT 51 H Alkaline Phosphatase 146 H Total Protein 6.5 Albumin 3.2 L Globulin 3.3 Albumin/Globulin Ratio 1.0 Vitamin B12 Procalcitonin 0.18 Hep Bs Antibody Hep B Core Total Ab 02/18/20 04:49 WBC RBC Hgb Hct MCV MCH MCHC RDW Plt Count Neut % (Auto) Lymph % (Auto) [place] % (Auto) Eos % (Auto) Baso % (Auto) Lymph # (Auto) [place] # (Auto) Baso # (Auto) Total Counted Seg Neutrophils % Band Neutrophils % Lymphocytes % (Manual) Monocytes % (Manual) Neutrophils # (Manual) RBC Morphology Anisocytosis Sodium Potassium Chloride Carbon Dioxide BUN Creatinine Estimated GFR BUN/Creatinine Ratio Glucose Calcium Phosphorus Magnesium Total Bilirubin AST ALT Alkaline Phosphatase Total Protein Albumin Globulin Albumin/Globulin Ratio Vitamin B12 484 Procalcitonin Hep Bs Antibody Hep B Core Total Ab Assessment & Plan Assessment & Plan narrative: Morenita Watt is a 64 year old female with PMH of EtOH use, chronic neuropathy, and vision problems who presents with nausea and vomiting for the past 1-2 days, profound weakness and shortness of breath progressive over the past week. 1. Acute starvation ketosis, present on admission, resolved. -presented with severe anion gap acidosis in the setting of little or no food intake over the past week and chronic heavy alcohol use -her initial glucose was 239 and patient managed as DKA, but her A1c is 4.9, and overall clinical picture more consistent with starvation ketoacidosis - tylenol and salicylate levels negative. - initial LA 2.5, improved to 1.5 after initial fluids -continue D5 NS at 100 cc/hour -advanced diet as tolerated 2. Severe electrolyte deficiencies, present on admission, active -patient has persistent very low potassium, phosphorus, magnesium -continue electrolyte replacement IV/p.o. -increased sodium potassium phosphate to 3 packets 4 times daily which is equivalent to about 100 millimole phosphorus replacement per day -monitor labs b.i.d. until stable 3. EtOH abuse and dependency -last drink was 2 days BEEKEEPER. patient with history of severe withdrawal episode approx 6 years ago requiring intubation and where she suffered a seizure. -last CIWA was 1, has lorazepam ordered if needed -continue daily oral thiamin and MVI 4. Acute ETOH hepatitis, present on admission -patient has transaminitis likely secondary to ETOH -has markers of iron overload with a ferritin of 1950 and transferrin saturation 100%. However, this is likely elevated due to alcoholic liver disease versus hemochromatosis. Iron studies can be followed as outpatient with further evaluation if indicated. -LFTs improving. Discriminant function of 2. No indication for steroids. Coags are normal. - hepatic function is improving with fluid resusciatation and transferrin has decreased slightly to 1350. -serologies positive for hep B core antibody, negative for hep B surface antigen and antiibody, negative for hep C antibody, 5. Likely aspiration pneumonia, present on admission, active -patient presented with dyspnea and bilateral ground-glass opacities on CT and having low-grade fevers - initial and repeat COVID 19 testing negative. Complete viral panel negative. Blood cultures negative. -continue Rocephin and Zithromax -echo with normal LV, EF 60-65%, mildly dilated RV with RV hypertrophy, mild aortic stenosis, moderate TR, moderate to severe pulmonary hypertension 6. Acute pancytopenia, present on admission, active -likely secondary to ETOH bone marrow suppression and possibly acute infection - continue to follow. transfuse for plt <20, <50 if bleeding. - hold DVT ppx. - consider hematology evaluation as noted above -B12 level normal - HIV testing negative. 7. Acute diarrhea, present on admission, active -patient having small amounts of frequent stools -check C diff 8. Chronic neuropathy, active -restart duloxetine -patient is followed by neurology as outpatient Diet: Advance as tolerated Fluids: D5 NS DVT prophylaxis: SCDs, Lovenox contraindicated due to thrombocytopenia Code status: Full code, is surrogate decision maker
[2020-02-18] MEDS: THIAMINE 100 MG TABLET PO (13:26)
[2020-02-18] MEDS: MULTIVITAMIN 1 TABLET 1 TAB PO (13:26)
[2020-02-18] MEDS: DULOXETINE 20 MG CAPSULE 40 MG PO (13:26)
[2020-02-18] MEDS: ACETAMINOPHEN 325 MG TABLET 650 MG PO (13:26)
[2020-02-18] MEDS: SODIUM,POTASSIUM PHOSPHATES PACKET 3 EACH PO ×3 (13:27→21:03)
--- NOTE | 2020-02-18 13:38 | PT.IIE ---
Medical History (Last Updated 02/18/20 @ 11:34 by Marilyn Dorado RN) Alcohol abuse (Acute) Peripheral neuropathy (Acute) Physical Therapy Inpatient Evaluation/Re-Eval M1 PT/OT-IP Prior Functional Status Start: 02/18/20 17:06 Freq: NEEDED Status: Active Protocol: Document 02/18/20 13:38 AB (Rec: 02/18/20 17:20 AB [id number]) Medical Review Prior Functional Status Medical History Reviewed Yes Diet/Fluid Consistency Clear Liquids Communication able to make needs known Mobility and Gait pt stated that she is independent with all mobilities and ambulation without AD but occasionally uses 4WW depending on her neuropathy but always uses a 4WW for outdoor mobility Social History Household Members spouse Living Arrangements House Number of Floors (Floors) Two Floors Number of Stairs To Enter/Railing? 3 steps with L rail ascending from the garage has 16 steps to bedroom level: R rail and L banisters/ vertical banisters Home Environment Standard Height Toilet,Walk in Shower Home Equipment Front Wheel Walker,Four Wheel Walker,Shower Seat with Backrest,Hand Held Shower,Grab Bars Near Toilet,Grab Bars In Shower Employment Status Retired Additional Social History Comment pt has a hurrycane M2 PT-IP Current Condition Start: 02/18/20 17:06 Freq: NEEDED Status: Active Protocol: Document 02/18/20 13:38 AB (Rec: 02/18/20 17:20 AB [id number]) Physical Therapy Current Condition Current Condition Evaluation Date 02/18/20 Treatment Diagnosis ketoacidosis; difficulty in walking Onset Date 02/16/20 Precautions Other Precautions contact precaution: r/o c-diff M3 PT-IP Subjective Start: 02/18/20 17:06 Freq: NEEDED Status: Active Protocol: Document 02/18/20 13:38 AB (Rec: 02/18/20 17:20 AB [id number]) Subjective Physical Therapy Visit Type Type Initial Evaluation Visit Start Time 13:38 Visit Stop Time 14:26 Total Visit Minutes 48 Number of INFORMATION MANAGEMENT OFFICER Visits 0 Physical Therapy Visit Comments Patient Comments agreeable to do PT but requested to go back to bed afterwards Therapy Pain Assessment Pain Present Pain Present Denied Pain M4 PT-IP Mobility and Gait Start: 02/18/20 17:06 Freq: NEEDED Status: Active Protocol: Document 02/18/20 13:38 AB (Rec: 02/18/20 17:20 AB [id number]) PT-Bed Mobility Assessment Supine to Sit Supine to Sit Maximum Assistance Sit to Supine Sit to Supine Maximum Assistance PT-Transfer Assessment Sit to and From Stand Sit to and from Stand Moderate Assistance,1 Person Assistance,Use of Upper Extremities Equipment Transfer Assistive Device Gait Belt,Front Wheeled Walker Orthotic/Prosthetic Devices or Brace: No Transfers Transfer Destination Bed Transfer Technique Stand Step Pivot Transfer Ability Level of Assist Maximum Assistance,1 Person Assistance,Use of Upper Extremities Comments Mobility Comments pt sitting on chair an dagreeable to do PT. O2 sat 92% RO 103 resting. completed sit to stand mod A and cues and ambulated ~ 2 ft using FWW max A and instructed to sit down due to HR up to 195. pt requested to go back to bed. completed sit to stand again mod A and cues and max A for stand step transfer using FWW. completed bed mobility supine< >sit max A and cues. laid back in bed sit to supine max A. positioned in bed. call light and table placed within reach. nurse aware of HR. Gait Assessment Gait Gait Assistance Required: Maximum Assistance Distance (Feet) 2 Able to Maintain Weight Bearing Status Yes During Gait Assistive Devices Assistive Device Gait Belt,Front Wheeled Walker Orthotic/Prosthetic Devices or Brace: No Gait Deviations General Gait Pattern Antalgic,Decreased Stride Length,Decreased Feet Clearance,Narrow Based Gait, Step-to Gait Factors Limiting Gait Function Factors Limiting Gait Function Decreased Activity Tolerance, Decreased Sensation,Decreased Strength,Difficulty Following Directions,Poor Balance,Poor Safety Awareness PT-Balance Assessment Sitting Balance and Reactions Static Sitting Balance Ability Good Dynamic Sitting Balance Ability Fair Standing Balance and Reactions Static Standing Balance Ability Poor Dynamic Standing Balance Ability Poor Device Used FWW M5 PT-IP Objective Assessments Start: 02/18/20 17:06 Freq: NEEDED Status: Active Protocol: Document 02/18/20 13:38 AB (Rec: 02/18/20 17:20 AB [id number]) Orientation Orientation/Cognition Level of Alertness Alert Orientation Name,Place,Situation Safety Awareness Decreased Safety Awareness Gross Range of Motion Lower Extremity ROM Assessment Within Functional Limits Strength Lower Extremity Strength Assessment Bilaterally Impaired Comments Strength Comments LLE: 4-/5 RLE 3+/5 Sensation Assessment Sensation Light Touch Impaired Proprioception (Position) Impaired Sensation Description Numbness,Tingling Comments Sensation Comments B feet numbness/ tingling: pt has neuropathy Muscle Tone Muscle Tone WNL Yes M6 PT-IP Treatment Start: 02/18/20 17:06 Freq: NEEDED Status: Active Protocol: Document 02/18/20 13:38 AB (Rec: 02/18/20 17:20 AB [id number]) Physical Therapy Treatment Education Education Provided Safety M7 PT-IP Assessment and Plan Start: 02/18/20 17:06 Freq: NEEDED Status: Active Protocol: Document 02/18/20 13:38 AB (Rec: 02/18/20 17:20 AB [id number]) PT Summary Assessment and Plan Potential Rehabilitation Potential Fair Status of Condition at Evaluation Evolving Summary Impairments Pain,ROM,Strength,Balance, Coordination,Sensation,Tone, Cognition,Bed Mobility, Transfers,Gait,Activity Tolerance Assessment Summary pt requiring max A with mobility and unable to ambulate much with increase in HR to 195 with short distance ambulation. pt will require SNF rehab to improve mobility and independence. Goals Bed Mobility Goal Minimal Assistance Transfer Goal Minimal Assistance,Front Wheeled Walker Gait Goal Minimal Assistance,Front Wheel Walker Gait Distance 50 Other Goals up/down 3 steps L rail ascending CGA 16 steps R rail ascending CGA Days to Meet Goals 10 Frequency of Treatment Frequency Of Treatment Once a Day Treatment Plan Physical Therapy Treatment Plan Bed Mobility Training,Transfer Training,Gait Training, Therapeutic Exercise,Balance Retraining,Discharge Planning, Neuromuscular Re-ed Other Recommendations and Next Treatment ambulation Focus Recommendations To Nursing Amount of Assist Needed 2 Person Assist Discharge Recommendations PT Discharge Recommendations SNF Rehab Transportation Needs at Discharge Wheelchair/Cabulance
[2020-02-18 14:22] LABS: Carbon Dioxide 21 mmol/L (22-32); Chloride 103 mmol/L (98-107); HEMOLYSIS < 15 (0-50); Magnesium 1.6 mg/dL (1.6-2.3); Potassium 2.9 mmol/L (3.4-5.1); Sodium 135 mmol/L (137-145)
--- NOTE | 2020-02-18 15:02 | CM.DPC ---
DCP SNF Planning: Per MD, pt making some medical progress but not stable for d/c yet today and currently on precautions to ruleout CDiff. Per RN, pt had one episode of visual disturbance from likely ETOH withdrawal but none since and CIWA score has been between 1-3. PT/OT ordered today and per PT, currently recommending SNF at d/c unless pt progresses enough while admitted to safely d/c home with spouse. SW met bedside with pt and explained role again and discussed current SNF recommendation and provided the SNF Choice List with highlighted [employer] contracted SNF's [facility], [facility], and [facility] has confirmed that they have gotten one time contracts with [employer] before and would be willing to again. Pt states that right now her preference would be [facility] as they live nearby in [place] and agreeable with SW making a referral to [facility]. SW faxed clinicals and called admissions requesting review and if they feel they can accept then to begin insurance auth (although OT has not completed initial eval yet today as OT will not be in until tomorrow). PASRR completed in anticipation of SNF at d/c. Plan: SW to follow for [facility] review to determine if they can accept and then begin [employer] Insurance auth once OT completes initial eval tomorrow when available. SW to follow for possible SNF vs HH pending progress and to provide pt with CD community resources at discharge. HUNTER Azul
[2020-02-18 15:52] VITALS: BP 127/72; PULSE 102; RESP 26; TEMP 36.5; O2SAT 99
[2020-02-18 17:49] LABS: Clostridium Difficile Tox PCR Negative for C. diff
[2020-02-18] MEDS: POTASSIUM CHLORIDE 40 MEQ in SODIUM CHLORIDE 0.9% 500 ML 130 ML IV (18:09)
[2020-02-18] MEDS: SODIUM CHLORIDE 0.9% FLUSH 10 ML IV (19:30)
[2020-02-18 19:39] VITALS: BP 110/69; PULSE 113; RESP 28; TEMP 37.7; O2SAT 97
[2020-02-18] MEDS: CEFTRIAXONE 1 GM/50 ML FROZ.PIGGY IV (20:28)
[2020-02-18] MEDS: DEXTROSE 5%-0.9% NS 1,000 ML 100 ML IV (21:02)
[2020-02-18] MEDS: AZITHROMYCIN 250 MG in DEXTROSE 5% IN WATER 250 ML IV (21:43)
[2020-02-19 02:01] VITALS: BP 136/80; PULSE 120; RESP 29; TEMP 36.1; O2SAT 98
[2020-02-19 05:15] LABS: Calcium 7.7 mg/dL (8.4-10.2); Carbon Dioxide 23 mmol/L (22-32); Chloride 105 mmol/L (98-107); Estimated Glomerular Filt Rate > 60.0 mL/min (>60); Glucose 149 mg/dL (80-110); HEMOLYSIS < 15 (0-50); Magnesium 1.7 mg/dL (1.6-2.3); Phosphorous 1.9 mg/dL (2.8-4.1); Sodium 135 mmol/L (137-145)
[2020-02-19 05:17] LABS: Basophils Absolute Auto 0 /uL (0-100); Basophils Percent Auto 0.7 % (0-2); Eosinophils Absolute Auto 0 /uL (0-450); Eosinophils Percent Auto 0.5 % (2-4); Hematocrit 33.4 % (36-46); Hemoglobin 12.1 g/dL (12.0-16.0); Lymphocytes Absolute Auto 600 /uL (1100-4500); Lymphocytes Percent Auto 26.9 % (25-40); Mean Corpuscular HGB Conc 36.1 % (30-36); Mean Corpuscular Hemoglobin 34.4 PG (26-34); Mean Corpuscular Volume 95.3 fL (80-100); Monocytes Absolute Auto 200 /uL (0-900); Monocytes Percent Auto 11.3 % (3-14); Neutrophils Absolute Auto 1300 /uL (1500-7000); Neutrophils Percent Auto 60.6 % (50-75); Platelet Count 64 X10^3/uL (150-400); Red Blood Cell Count 3.51 X10^6/uL (4.0-5.2); White Blood Cell Count 2.1 X10^3/uL (4.5-11.0)
[2020-02-19 05:29] LABS: Procalcitonin 0.06 ng/mL (<0.5)
[2020-02-19 05:31] VITALS: BP 123/68; PULSE 114; RESP 28; TEMP 37.7; O2SAT 97
[2020-02-19 05:42] LABS: BUN Creatinine Ratio 5.1 (6-22); Blood Urea Nitrogen 2 mg/dL (7-17)
[2020-02-19 05:44] LABS: Potassium 2.5 mmol/L (3.4-5.1)
[2020-02-19 06:43] LABS: Add Manual Diff / Slide Review SLIDE REVIEW
[2020-02-19 06:44] LABS: Anisocytosis 1+
[2020-02-19 06:45] LABS: Rouleaux 1+
[2020-02-19 07:15] VITALS: BP 118/66; PULSE 130; RESP 16; TEMP 36.4; O2SAT 94
[2020-02-19] MEDS: MULTIVITAMIN 1 TABLET 1 TAB PO (08:28)
[2020-02-19] MEDS: POTASSIUM CHLORIDE 20 MEQ TAB 40 MEQ PO (08:28)
[2020-02-19] MEDS: POTASSIUM PHOSPHATE IV (08:28)
[2020-02-19] MEDS: WATER IV (08:28)
[2020-02-19] MEDS: DEXTROSE 5% IV (08:28)
[2020-02-19] MEDS: DULOXETINE 20 MG CAPSULE 40 MG PO (08:29)
[2020-02-19] MEDS: SODIUM,POTASSIUM PHOSPHATES PACKET 3 EACH PO ×3 (08:29→16:39)
[2020-02-19] MEDS: THIAMINE 100 MG TABLET PO (09:33)
--- NOTE | 2020-02-19 11:13 | OT.IP.EVAL ---
Current Diagnoses Acidosis (02/16/20) Past Medical History (Last Updated 02/18/20 @ 11:34 by Marilyn Dorado RN) Alcohol abuse (Acute) Peripheral neuropathy (Acute) Occupational Therapy Inpatient Evaluation/Re-Eval M1 PT/OT-IP Prior Functional Status Start: 02/18/20 17:06 Freq: NEEDED Status: Active Protocol: Document 02/19/20 13:16 CGR (Rec: 02/19/20 13:39 CGR [id number]) Medical Review Prior Functional Status Medical History Reviewed Yes Diet/Fluid Consistency Clear Liquids Communication able to make needs known Mobility and Gait pt stated that she is independent with all mobilities and ambulation without AD but occasionally uses 4WW depending on her neuropathy but always uses a 4WW for outdoor mobility Activities of Daily Living and IADL's Pt needed assist with LB dressing and supervision for showering. Pt's does most of the IADLs. Social History Household Members spouse Living Arrangements House Number of Floors (Floors) Two Floors Number of Stairs To Enter/Railing? 3 steps with L rail ascending from the garage has 16 steps to bedroom level: R rail and L banisters/ vertical banisters Home Environment Standard Height Toilet,Walk in Shower Home Equipment Front Wheel Walker,Four Wheel Walker,Shower Seat with Backrest,Hand Held Shower,Grab Bars Near Toilet,Grab Bars In Shower Employment Status Retired Additional Social History Comment pt has a hurrycane M2 OT-IP Current Condition Start: 02/19/20 13:16 Freq: Status: Active Protocol: Document 02/19/20 13:16 CGR (Rec: 02/19/20 13:39 CGR [email or web address]) Occupational Therapy Current Condition Current Condition Evaluation Date 02/19/20 Treatment Diagnosis nausea and vomiting x2 days, ETOH Diagnosis Onset Date 02/16/20 M3 OT- IP Subjective and Pain Start: 02/19/20 13:16 Freq: Status: Active Protocol: Document 02/19/20 13:16 CGR (Rec: 02/19/20 13:39 CGR [id number]) OT- Subjective Occupational Therapy Visit Type Type Initial Evaluation Visit Start Time 10:44 Visit Stop Time 11:13 Total Visit Minutes 29 Notes Pt's present throughout. OT Pain Assessment Pain When Pain Assessed During Mobility Pain Present Pain Present Denied Pain M4 OT- IP ADL's Start: 02/19/20 13:16 Freq: Status: Active Protocol: Document 02/19/20 13:16 CGR (Rec: 02/19/20 13:39 CGR [id number]) OT [id number] General Evaluation Self-Feeding Ability Independent Comments OT Self-Feeding Comments lunch OT ADL-Grooming General Evaluation Grooming Ability Independent Areas Needing Assistance Face Washing Comments OT Grooming Comments pt stood at sink for washing face. OT ADL-Oral Care Comments Oral Care Comments Not performed OT ADL-Dressing General Eval Lower Body Dressing Ability Maximum Assistance Areas Needing Assistance Underpants/Brief Comments OT Dressing Comments seated on toilet OT ADL-Toileting General Evaluation Toileting Ability Standby Assistance Areas Needing Assistance Perform Perineal Hygiene OT ADL-Bathing Comments OT Bathing Comments not performed M5 OT- IP IADL's Start: 02/19/20 13:16 Freq: Status: Active Protocol: Document 02/19/20 13:16 CGR (Rec: 02/19/20 13:39 CGR [email or web address]) OT-Instrumental Activities of Daily Living Deficits IADL Deficits Identified Deficits Home Safety Awareness Awareness of Need for Assistance at Home Good Awareness Ability to Problem Solve Emergency Able to Problem Solve Situations Medication Management Medication Management No Deficits Identified Money Management Money Management Caregiver Provides Assistance Meal Preparation Meal Preparation Caregiver Provides Assist Head Of Insight Head Of Insight Caregiver Provides Assist Driving Driving Comments Pt does not drive. M6 OT- IP Functional Cognition Start: 02/19/20 13:16 Freq: Status: Active Protocol: Document 02/19/20 13:16 CGR (Rec: 02/19/20 13:39 CGR [email or web address]) Cognitive Factors Limiting Selfcare Function Cognitive Ability Level of Alertness Alert Patient Orientation Name,Age,Birthday,Month,Date, Year,Day of Week,Place, Situation Attention Span Ability Capable of Focused Attention, Capable of Sustained Attention Ability to Follow Commands Able to Follow Multi-Step Commands OT- Vision and Hearing OT- Hearing Assessment OT- Hearing Assessment WFL OT- Vision Assessment Visual Acuity Glasses All The Time Visual Attentiveness WFL Occular Pursuits WFL Visual Convergence WFL Visual Rivera WFL M7 OT- IP Mobility and Balance Start: 02/19/20 13:16 Freq: Status: Active Protocol: Document 02/19/20 13:16 CGR (Rec: 02/19/20 13:39 CGR [email or web address]) OT- Bed Mobility Assessment Rolling Type of Rolling Roll to Left Level of Assistance Contact Guard Assistance,Head of Bed Elevated,Bedrails Supine to Sit Supine to Sit Assist Contact Guard Assistance Scooting Scooting to Edge of Bed Contact Guard Assistance OT-Transfer Assessment Sit to and From Stand Sit to and from Stand Contact Guard Assistance Transfers Transfer Ability Contact Guard Assistance Technique Transfer Destination Bed,Car,Toilet Transfer Technique Stand Step Pivot Devices Transfer Assistive Devices Gait Belt,Front Wheeled Walker OT- Gait Assessment Gait Gait Assistance Required: Contact Guard Assist Assistive Devices Assistive Device Gait Belt,Front Wheeled Walker OT- Balance Assessment Sitting Balance and Reactions Static Sitting Balance Ability Good Dynamic Sitting Balance Ability Fair M8 OT- IP Objective Assessments Start: 02/19/20 13:16 Freq: Status: Active Protocol: Document 02/19/20 13:16 CGR (Rec: 02/19/20 13:39 CGR [email or web address]) OT Gross Range of Motion Upper Extremity Range of Motion Assessment Within Functional Limits OT Strength Upper Extremity Strength Assessment Bilaterally Impaired Comments Strength Comments Grossly 4-/5 with poor endurance of muscle contraction. OT- Coordination Assessment Upper Extremity Finger to Nose Test Within Functional Limits Finger Tapping Test Within Functional Limits OT-Muscle Tone Assessment Muscle Tone WNL No OT Sensation Assessment Edema Edema Absent M9 OT- IP Assessment and Plan Start: 02/19/20 13:16 Freq: Status: Active Protocol: Document 02/19/20 13:16 CGR (Rec: 02/19/20 13:39 CGR [email or web address]) OT Summary Assessment and Plan Potential Rehabilitation Potential Good Analytic Complexity at Evaluation Low Summary OT Impairments Strength,Balance,Functional Mobility,Grooming,Dressing, Toileting,Bathing,Toilet Transfers,Shower Transfers, Activity Tolerance Progress Towards Goals Progressing Toward Goals Assessment Summary Pt presents as a low complexity evaluation s/p admit for vomiting. Pt appears weak and would benefit from therapy in the hospital setting for increasing strength and endurance. Recommendation is likely to be for discharge home when medically appropriate. Pt's is able to assist. Discussed setting up space on main floor for sleeping and bathing sink side till more stable for stairs. Goals Grooming Goal Independent Dressing Goal Independent,Customs Brokerage Agent,Sock Aid Toileting Goal Independent Bathing Goal Independent Toilet Transfer Goal Independent Shower Transfer Goal Independent Days to Meet Goals 5 Frequency of Treatment Frequency Of Treatment Once a Day Treatment Plan OT Treatment Plan ADL Training,Functional Mobility,Patient/Family Education,Discharge Planning Discharge Recommendations OT Discharge Recommendations Home with Assistance Home Equipment Needs none at this time. Transportation Needs at Discharge Private Vehicle
[2020-02-19 12:10] VITALS: BP 113/78; PULSE 119; RESP 18; TEMP 36.3; O2SAT 99
--- NOTE | 2020-02-19 12:33 | PT.IPTN ---
Current Diagnoses Acidosis (02/16/20) Physical Therapy Treatment Note M2 PT-IP Current Condition Start: 02/18/20 17:06 Freq: NEEDED Status: Active Protocol: Document 02/18/20 13:38 AB (Rec: 02/18/20 17:20 AB [id number]) Physical Therapy Current Condition Current Condition Evaluation Date 02/18/20 Treatment Diagnosis ketoacidosis; difficulty in walking Onset Date 02/16/20 Precautions Other Precautions contact precaution: r/o c-diff M3 PT-IP Subjective Start: 02/18/20 17:06 Freq: NEEDED Status: Active Protocol: Document 02/19/20 11:34 LJ (Rec: 02/19/20 12:33 LJ [id number]) Subjective Physical Therapy Visit Type Type Treatment Note Visit Start Time 11:34 Visit Stop Time 12:00 Total Visit Minutes 26 Number of UI DEVELOPER Visits 1 Physical Therapy Visit Comments Patient Comments willing to do PT. in room M4 PT-IP Mobility and Gait Start: 02/18/20 17:06 Freq: NEEDED Status: Active Protocol: Document 02/19/20 11:34 LJ (Rec: 02/19/20 12:33 LJ [id number]) PT-Transfer Assessment Sit to and From Stand Sit to and from Stand Standby Assistance,Use of Upper Extremities Equipment Transfer Assistive Device Gait Belt,Front Wheeled Walker Orthotic/Prosthetic Devices or Brace: No Transfers Transfer Destination Chair Transfer Technique ambulated with FWW Transfer Ability Level of Assist Standby Assistance,Use of Upper Extremities Comments Mobility Comments Pt reclining in chair. Assisted with folding footrest into chair using her legs. Pt stood using arm rests and quickly transitioned hands to FWW prior to standing erect. Pt then ambulated around the room. See gait comments. She was able to lower herself into chair with control requiring cues for hand placement on arm rests. Gait Assessment Gait Gait Assistance Required: Contact Guard Assist Distance (Feet) 30 Able to Maintain Weight Bearing Status Yes During Gait Assistive Devices Assistive Device Gait Belt,Front Wheeled Walker Orthotic/Prosthetic Devices or Brace: No Gait Deviations General Gait Pattern Antalgic,Decreased Stride Length,Decreased Feet Clearance,Narrow Based Gait, Step-to Gait Factors Limiting Gait Function Factors Limiting Gait Function Decreased Activity Tolerance, Decreased Sensation,Decreased Strength,Difficulty Following Directions,Poor Balance,Poor Safety Awareness Comments Gait Comments Pt moves slowly requiring cues for FWW management to perform turns in the room. She moves slowly and stated she felt unsteady. Returned to the chair for seated exercises. Stair Climbing Assessment Comments Stair Climbing Comments unable at this point M5 PT-IP Objective Assessments Start: 02/18/20 17:06 Freq: NEEDED Status: Active Protocol: Document 02/18/20 13:38 AB (Rec: 02/18/20 17:20 AB [id number]) Orientation Orientation/Cognition Level of Alertness Alert Orientation Name,Place,Situation Safety Awareness Decreased Safety Awareness Gross Range of Motion Lower Extremity ROM Assessment Within Functional Limits Strength Lower Extremity Strength Assessment Bilaterally Impaired Comments Strength Comments LLE: 4-/5 RLE 3+/5 Sensation Assessment Sensation Light Touch Impaired Proprioception (Position) Impaired Sensation Description Numbness,Tingling Comments Sensation Comments B feet numbness/ tingling: pt has neuropathy Muscle Tone Muscle Tone WNL Yes M6 PT-IP Treatment Start: 02/18/20 17:06 Freq: NEEDED Status: Active Protocol: Document 02/19/20 11:34 RENETTA (Rec: 02/19/20 12:33 [id number]) Physical Therapy Treatment Exercises Exercises Ankle Pumps,Gluteal Sets,Quad Sets,Heel Slides,Seated Knee Flexion/Extension Education Education Provided Safety Other Treatments Other Treatment Performed standing marching prior to initiating gait ~1 min M7 PT-IP Assessment and Plan Start: 02/18/20 17:06 Freq: NEEDED Status: Active Protocol: Document 02/19/20 11:34 RENETTA (Rec: 02/19/20 12:33 [id number]) PT Summary Assessment and Plan Potential Rehabilitation Potential Fair Status of Condition at Evaluation Evolving Summary Impairments Pain,ROM,Strength,Balance, Coordination,Sensation,Tone, Cognition,Bed Mobility, Transfers,Gait,Activity Tolerance Assessment Summary Pt requiring cues with hand placement during sit<>stand and FWW management during ambulation. Pt unsteady during gait. Able to perform seated exercises including above and mini crunches in chair for abdominal strength. She will require SNF rehab to improve mobility and strength prior to going home Goals Bed Mobility Goal Minimal Assistance Transfer Goal Minimal Assistance,Front Wheeled Walker Gait Goal Minimal Assistance,Front Wheel Walker Gait Distance 50 Other Goals up/down 3 steps L rail ascending CGA 16 steps R rail ascending CGA Days to Meet Goals 10 Frequency of Treatment Frequency Of Treatment Once a Day Treatment Plan Physical Therapy Treatment Plan Bed Mobility Training,Transfer Training,Gait Training, Therapeutic Exercise,Balance Retraining,Discharge Planning, Neuromuscular Re-ed Other Recommendations and Next Treatment ambulation Focus Recommendations To Nursing Amount of Assist Needed 1 Person Assist Discharge Recommendations PT Discharge Recommendations SNF Rehab Transportation Needs at Discharge Wheelchair/Cabulance
--- NOTE | 2020-02-19 12:52 | CM.DPC ---
DCP continued: EMR Reviewed: CM/RN called Marilyn at [facility] and left a message to check-in with them to determine if they will accept patient pending human Insurance auth. CM/Rn faxed copy of todays PT note as well as PT evaluation note for there review- OT note pending will fax once it is entered into the EMR. ARISTIDES/RN met with patient and disscussed CD community resources patient is not interested in any treatment currenlty but is willing to look through resources. Aristides/RN gave patient information about [facility], [place] services for mental health care as well as CD programs they offer. ARISTIDES/RN also gave patient a list of AA meeting that take place weekly on [facility] and in [facility]. Patient stated understanding and stated she will look threw them. Jyoti Valera RN.
[2020-02-19 14:14] LABS: HEMOLYSIS < 15 (0-50); Potassium 3.7 mmol/L (3.4-5.1)
--- NOTE | 2020-02-19 14:41 | PM.PN.1 ---
Subjective Subjective Date Patient Seen: 02/19/20 Interval history: Morenita Watt is a 64 year old female with PMH of EtOH use, chronic neuropathy, and vision problems who presents with nausea and vomiting for the past 1-2 days, profound weakness and shortness of breath progressive over the past week. She had not eaten over the past week and had a severe anion gap metabolic acidosis likely due to starvation ketosis. She has persistent severe electrolyte deficiencies. She is also being treated for pneumonia. Patient remains profoundly weak. She was having low-grade fevers but none since this morning. She continues having small frequent stools. She is tolerating clear liquids and ready to advance diet. Exam Vital Signs (past 8 hours): - 02/19/20 07:15 02/19/20 12:10 Temperature 97.6 F 97.3 F L Pulse Rate 130 H 119 H Respiratory Rate 16 18 Blood Pressure 118/66 113/78 Pulse Oximetry 94 99 Oxygen Delivery Method Room Air Oxygen Flow Rate 0 Narrative Exam Narrative: General: Alert and pleasant female sitting in bedside chair and in no acute distress Lungs: Breathing nonlabored. Diffuse bilateral crackles, no wheeze Heart: Regular rhythm Abdomen: Soft, mildly tender bilaterally, nonspecific Extremities: Dry, no edema Neurological: Sensorium intact, nonfocal weakness Objective Labs Result Diagrams: 02/19/20 04:44 02/19/20 13:50 Labs: Laboratory Results - last 24 hr 02/18/20 02/19/20 02/19/20 16:54 04:44 04:44 WBC 2.1 L RBC 3.51 L Hgb 12.1 Hct 33.4 L MCV 95.3 MCH 34.4 H MCHC 36.1 H RDW 19.0 H Plt Count 64 L Neut % (Auto) 60.6 Lymph % (Auto) 26.9 [place] % (Auto) 11.3 Eos % (Auto) 0.5 L Baso % (Auto) 0.7 Neut # (Auto) 1300 L Lymph # (Auto) 600 L [place] # (Auto) 200 Eos # (Auto) 0 Baso # (Auto) 0 RBC Morphology See below Anisocytosis 1+ H Rouleaux 1+ H Sodium Potassium Chloride Carbon Dioxide BUN Creatinine Estimated GFR BUN/Creatinine Ratio Glucose Calcium Phosphorus 1.9 L Magnesium 1.7 Procalcitonin C. difficile Tox (PCR) Negative for c. diff 02/19/20 02/19/20 02/19/20 04:44 04:44 13:50 WBC RBC Hgb Hct MCV MCH MCHC RDW Plt Count Neut % (Auto) Lymph % (Auto) [place] % (Auto) Eos % (Auto) Baso % (Auto) Neut # (Auto) Lymph # (Auto) [place] # (Auto) Eos # (Auto) Baso # (Auto) RBC Morphology Anisocytosis Rouleaux Sodium 135 L Potassium 2.5 L* 3.7 D Chloride 105 Carbon Dioxide 23 BUN 2 L Creatinine 0.39 L Estimated GFR > 60.0 BUN/Creatinine Ratio 5.1 L Glucose 149 H Calcium 7.7 L Phosphorus Magnesium Procalcitonin 0.06 C. difficile Tox (PCR) Assessment & Plan Assessment & Plan narrative: Morenita Watt is a 64 year old female with PMH of EtOH use, chronic neuropathy, and vision problems who presents with nausea and vomiting for the past 1-2 days, profound weakness and shortness of breath progressive over the past week. 1. Acute starvation ketosis, present on admission, resolved. -presented with severe anion gap acidosis in the setting of little or no food intake over the past week and chronic heavy alcohol use -her initial glucose was 239 and patient managed as DKA, but her A1c is 4.9, and overall clinical picture more consistent with starvation ketoacidosis - tylenol and salicylate levels negative. - initial LA 2.5, improved to 1.5 after initial fluids -adequately volume resuscitated, Hep-Lock IV 02/18 -advance diet as tolerated 2. Severe electrolyte deficiencies, present on admission, active -patient had persistent very low potassium, phosphorus, magnesium -continued low K and low phos, magnesium deficiency corrected -continue electrolyte replacement IV/p.o. -continue sodium potassium phosphate to 3 packets 4 times daily which is equivalent to about 100 millimole phosphorus replacement per day -monitor labs b.i.d. until stable 3. EtOH abuse and dependency -last drink was 2 days [employer]CH[employer]IS[employer]. patient with history of severe withdrawal episode approx 6 years ago requiring intubation and where she suffered a seizure. -last CIWA was 1, has lorazepam ordered but has not needed -continue daily oral thiamin and MVI 4. Acute ETOH hepatitis, present on admission -patient has transaminitis likely secondary to ETOH -has markers of iron overload with a ferritin of 1950 and transferrin saturation 100%. However, this is likely elevated due to alcoholic liver disease versus hemochromatosis. Iron studies can be followed as outpatient with further evaluation if indicated. -LFTs improving. Discriminant function of 2. No indication for steroids. Coags are normal. - hepatic function is improving with fluid resusciatation and transferrin has decreased slightly to 1350. -serologies positive for hep B core antibody, negative for hep B surface antigen and antiibody, negative for hep C antibody, 5. Likely aspiration pneumonia, present on admission, active -patient presented with dyspnea and bilateral ground-glass opacities on CT and having low-grade fevers - initial and repeat COVID 19 testing negative. Complete viral panel negative. Blood cultures negative. -continue Rocephin and Zithromax -echo with normal LV, EF 60-65%, mildly dilated RV with RV hypertrophy, mild aortic stenosis, moderate TR, moderate to severe pulmonary hypertension 6. Acute pancytopenia, present on admission, active -likely secondary to ETOH bone marrow suppression and possibly acute infection -stable/improving - continue to follow. transfuse for plt <20, <50 if bleeding. - hold DVT ppx. -B12 level normal - HIV testing negative. 7. Acute diarrhea, present on admission, active -patient having small amounts of frequent stools -stool C diff negative -continue monitoring 8. Chronic neuropathy, active -continue duloxetine -patient is followed by neurology as outpatient Patient being assessed by PT and OT. She is getting close to discharge and would likely need to go to halfway for rehab. Diet: Advance as tolerated DVT prophylaxis: SCDs, Lovenox contraindicated due to thrombocytopenia Code status: Full code, is surrogate decision maker
[2020-02-19 15:47] VITALS: BP 101/69; PULSE 119; RESP 19; TEMP 36.2; O2SAT 95
[2020-02-19 20:31] VITALS: BP 102/71; PULSE 95; RESP 20; TEMP 36.7; O2SAT 95
[2020-02-19] MEDS: CEFTRIAXONE 1 GM/50 ML FROZ.PIGGY IV (21:18)
[2020-02-19] MEDS: SODIUM CHLORIDE 0.9% FLUSH 10 ML IV ×2 (21:24→21:59)
[2020-02-19] MEDS: AZITHROMYCIN 250 MG in DEXTROSE 5% IN WATER 250 ML IV (21:59)
--- NOTE | 2020-02-19 22:37 | PC.NURSE ---
Assumed care of pt at 1500. Pt resting in bed during bedside hand-off. A/O. Ambulating to BA frequently; 1 PA w/fww. Steady on feet. Denies pain. IV S.L. with intermittent abx. Calling appropriately for needs. Bed alarm on. Seizure pads on bed. Phos-Nak packets not in drawer or Pyxis for HS administration. Provider notified. Different Phos med ordered which is also not in stock. Per Provider okay to skip Phox-Nak matt.
[2020-02-20] VITALS: BP 107/69; PULSE 120; RESP 20; TEMP 36.7; O2SAT 94
[2020-02-20 04:00] VITALS: BP 130/78; PULSE 120; RESP 18; TEMP 37.4; O2SAT 94
--- NOTE | 2020-02-20 04:56 | PC.NURSE ---
Patient is on continuous pulse oximetry. While asleep she can desat to 65%. When checking on the patient ,the alarm usually alerts her to breathe deep, and sat goes back to mid 90s.
[2020-02-20 05:34] LABS: BUN Creatinine Ratio 11.4 (6-22); Blood Urea Nitrogen 5 mg/dL (7-17); Calcium 7.3 mg/dL (8.4-10.2); Carbon Dioxide 26 mmol/L (22-32); Chloride 102 mmol/L (98-107); Estimated Glomerular Filt Rate > 60.0 mL/min (>60); Glucose 133 mg/dL (80-110); HEMOLYSIS < 15 (0-50); Magnesium 1.3 mg/dL (1.6-2.3); Phosphorous 3.7 mg/dL (2.8-4.1); Potassium 3.1 mmol/L (3.4-5.1); Sodium 134 mmol/L (137-145)
[2020-02-20 07:32] VITALS: BP 111/71; PULSE 120; RESP 18; TEMP 36.2; O2SAT 95
[2020-02-20] MEDS: DULOXETINE 20 MG CAPSULE 40 MG PO (08:30)
[2020-02-20] MEDS: SODIUM CHLORIDE 0.9% FLUSH 10 ML IV (08:31)
[2020-02-20] MEDS: MULTIVITAMIN 1 TABLET 1 TAB PO (08:31)
[2020-02-20] MEDS: LORATADINE 10 MG TABLET PO (08:31)
[2020-02-20] MEDS: MAGNESIUM SULFATE 2 GM/50 ML PIGGYBACK IV (08:32)
[2020-02-20] MEDS: SODIUM,POTASSIUM PHOSPHATES PACKET 3 EACH PO ×4 (08:32→21:00)
[2020-02-20] MEDS: THIAMINE 100 MG TABLET PO (08:42)
--- NOTE | 2020-02-20 11:40 | PT.IPTN ---
Current Diagnoses Acidosis (02/16/20) Physical Therapy Treatment Note M2 PT-IP Current Condition Start: 02/18/20 17:06 Freq: NEEDED Status: Active Protocol: Document 02/18/20 13:38 AB (Rec: 02/18/20 17:20 AB [id number]) Physical Therapy Current Condition Current Condition Evaluation Date 02/18/20 Treatment Diagnosis ketoacidosis; difficulty in walking Onset Date 02/16/20 Precautions Other Precautions contact precaution: r/o c-diff M3 PT-IP Subjective Start: 02/18/20 17:06 Freq: NEEDED Status: Active Protocol: Document 02/20/20 11:08 CLB (Rec: 02/20/20 12:11 CLB [id number]) Subjective Physical Therapy Visit Type Type Treatment Note Visit Start Time 11:08 Visit Stop Time 11:40 Total Visit Minutes 32 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 in room Therapy Pain Assessment Pain Present Pain Present Denied Pain M4 PT-IP Mobility and Gait Start: 02/18/20 17:06 Freq: NEEDED Status: Active Protocol: Document 02/20/20 11:08 CLB (Rec: 02/20/20 12:11 CLB [id number]) PT-Bed Mobility Assessment Supine to Sit Supine to Sit Minimal Assistance Sit to Supine Sit to Supine Standby Assistance PT-Transfer Assessment Sit to and From Stand Sit to and from Stand Contact Guard Assistance,Use of Upper Extremities Equipment Transfer Assistive Device Gait Belt,Front Wheeled Walker Orthotic/Prosthetic Devices or Brace: No Transfers Transfer Destination Bed,Chair Transfer Technique ambulated with FWW Transfer Ability Level of Assist Contact Guard Assistance,1 Person Assistance,Use of Upper Extremities Comments Mobility Comments Pt requires CGA for sit<>stand and cues for chair approach to keep walker close. Pt able to get from sit-supine SBA then required a resting break before she was able to scoot up and over in bed to straighten herself out. Pt then required Min A for supine to sit from flat bed. Pt ambulated in lacy ~60ft CGA with FWW , pt requires increased time with all gait and transfers. Pt left in reclined chair with all needs within reach and present. Gait Assessment Gait Gait Assistance Required: Contact Guard Assist Distance (Feet) 60 Able to Maintain Weight Bearing Status Yes During Gait Assistive Devices Assistive Device Gait Belt,Front Wheeled Walker Orthotic/Prosthetic Devices or Brace: No Gait Deviations General Gait Pattern Antalgic,Decreased Stride Length,Decreased Feet Clearance,Narrow Based Gait, Step-to Gait Factors Limiting Gait Function Factors Limiting Gait Function Decreased Activity Tolerance, Decreased Sensation,Decreased Strength,Difficulty Following Directions,Poor Balance,Poor Safety Awareness Comments Gait Comments Pt continues to require cues for turns and chair approach during ambulation. Pt will require CGA during ambulation for safety. Stair Climbing Assessment Comments Stair Climbing Comments unable at this point PT-Balance Assessment Sitting Balance and Reactions Static Sitting Balance Ability Good Dynamic Sitting Balance Ability Fair Standing Balance and Reactions Static Standing Balance Ability Poor Dynamic Standing Balance Ability Poor Device Used FWW M5 PT-IP Objective Assessments Start: 02/18/20 17:06 Freq: NEEDED Status: Active Protocol: Document 02/18/20 13:38 AB (Rec: 02/18/20 17:20 AB [id number]) Orientation Orientation/Cognition Level of Alertness Alert Orientation Name,Place,Situation Safety Awareness Decreased Safety Awareness Gross Range of Motion Lower Extremity ROM Assessment Within Functional Limits Strength Lower Extremity Strength Assessment Bilaterally Impaired Comments Strength Comments LLE: 4-/5 RLE 3+/5 Sensation Assessment Sensation Light Touch Impaired Proprioception (Position) Impaired Sensation Description Numbness,Tingling Comments Sensation Comments B feet numbness/ tingling: pt has neuropathy Muscle Tone Muscle Tone WNL Yes M6 PT-IP Treatment Start: 02/18/20 17:06 Freq: NEEDED Status: Active Protocol: Document 02/20/20 11:08 CLB (Rec: 02/20/20 12:11 CLB [id number]) Physical Therapy Treatment Exercises Exercises Ankle Pumps,Gluteal Sets,Quad Sets,Seated Knee Flexion/ Extension Education Education Provided Safety M7 PT-IP Assessment and Plan Start: 02/18/20 17:06 Freq: NEEDED Status: Active Protocol: Document 02/20/20 11:08 CLB (Rec: 02/20/20 12:11 CLB [id number]) PT Summary Assessment and Plan Potential Rehabilitation Potential Fair Status of Condition at Evaluation Evolving Summary Impairments Pain,ROM,Strength,Balance, Coordination,Sensation,Tone, Cognition,Bed Mobility, Transfers,Gait,Activity Tolerance Assessment Summary Pt required Min A for supine- sit and requires CGA for all other mobilty. Pt requires cues during gait for walker use for safety. Pt will need to trail stairs before d/c if going home. Pt has three steps to enter house and 16 steps to get to bedroom and shower. If pt is unable to d/c to SNF before returning home pt will benefit from HH OT/PT. Goals Bed Mobility Goal Minimal Assistance Transfer Goal Minimal Assistance,Front Wheeled Walker Gait Goal Minimal Assistance,Front Wheel Walker Gait Distance 50 Other Goals up/down 3 steps L rail ascending CGA 16 steps R rail ascending CGA Days to Meet Goals 10 Frequency of Treatment Frequency Of Treatment Once a Day Treatment Plan Physical Therapy Treatment Plan Bed Mobility Training,Transfer Training,Gait Training, Therapeutic Exercise,Balance Retraining,Discharge Planning, Neuromuscular Re-ed Other Recommendations and Next Treatment Stair training with . Focus Recommendations To Nursing Amount of Assist Needed 1 Person Assist Discharge Recommendations PT Discharge Recommendations SNF Rehab Other Discharge Recommendations SNF rehab Home with assist and HH OT/PT Transportation Needs at Discharge Private Vehicle,Wheelchair/ Cabulance
[2020-02-20 11:52] VITALS: BP 118/76; PULSE 113; RESP 16; TEMP 36.4; O2SAT 98
--- NOTE | 2020-02-20 12:15 | OT.IP.TRT ---
Current Diagnoses Acidosis (02/16/20) Occupational Therapy Treatment Note M2 OT-IP Current Condition Start: 02/19/20 13:16 Freq: Status: Active Protocol: Document 02/19/20 13:16 CGR (Rec: 02/19/20 13:39 CGR [id number]) Occupational Therapy Current Condition Current Condition Evaluation Date 02/19/20 Treatment Diagnosis nausea and vomiting x2 days, ETOH Diagnosis Onset Date 02/16/20 M3 OT- IP Subjective and Pain Start: 02/19/20 13:16 Freq: Status: Active Protocol: Document 02/20/20 12:14 CGR (Rec: 02/20/20 12:14 CGR [id number]) OT- Subjective Occupational Therapy Visit Type Type Administrative Note Notes Attempted to see pt for OT services. Pt states already performed shower and wants to wait to do further ADLs till after lunch. Will continue to follow.
--- NOTE | 2020-02-20 13:04 | CM.DPC ---
DCP continued: EMR reviewed: CM/RN spoke with Marilyn at [facility] and she stated they can accept patient as long as [facility] approves SNF care for patient. [facility] submitted request to human this morning and CM department will follow up in the AM to check on authorization approval. If [facility] denies patient for SNF patient is Okay at that point going home with her and HH services. if HH is decided on will need F2F signed. Jyoti Valera RN
--- NOTE | 2020-02-20 13:30 | P.PN_ITS ---
Subjective Subjective Date Patient Seen: 02/20/20 Interval history: Patient is a 64-year-old female admitted to the hospital with severe anion gap metabolic acidosis secondary to starvation. The patient has chronic neuropathy. History of ETOH dependence Patient tolerated her diet today. She has no evidence of delirium tremens. Patient is somewhat weak with ambulation. She and her have elected that she should go to [facility] for rehabilitation prior to being discharged home. Patient continues to complain of shortness of breath. This appears to be chronic. Exam Vital Signs (past 8 hours): - 02/20/20 07:32 02/20/20 11:52 Temperature 97.2 F L 97.5 F L Pulse Rate 120 H 113 H Respiratory Rate 18 16 Blood Pressure 111/71 118/76 Pulse Oximetry 95 98 Oxygen Delivery Method Room Air Oxygen Flow Rate 0 Narrative Exam Narrative: Pleasant female in no acute distress Lungs: Decreased breath sounds with scattered crackles bilaterally in the bases Cardiac exam: Regular rate and rhythm normal S1-S2 Abdomen: Soft nontender nondistended Extremities: No edema Objective Labs Result Diagrams: 02/19/20 04:44 02/20/20 05:11 Labs: Laboratory Results - last 24 hr 02/19/20 02/20/20 13:50 05:11 Sodium 134 L Potassium 3.7 D 3.1 L Chloride 102 Carbon Dioxide 26 BUN 5 L Creatinine 0.44 L Estimated GFR > 60.0 BUN/Creatinine Ratio 11.4 Glucose 133 H Calcium 7.3 L Phosphorus 3.7 D Magnesium 1.3 L Assessment & Plan Assessment & Plan narrative: Assessment & Plan narrative: Morenita Watt is a 64 year old female with PMH of EtOH use, chronic neuropathy, and vision problems who presents with nausea and vomiting for the past 1-2 days, profound weakness and shortness of breath progressive over the past week. 1. Acute starvation ketosis, present on admission, resolved. -presented with severe anion gap acidosis in the setting of little or no food intake over the past week and chronic heavy alcohol use -her initial glucose was 239 and patient managed as DKA, but her A1c is 4.9, and overall clinical picture more consistent with starvation ketoacidosis - tylenol and salicylate levels negative. - initial LA 2.5, improved to 1.5 after initial fluids -adequately volume resuscitated, Hep-Lock IV 02/18 -advance diet as tolerated -patient is on a regular diet and is tolerating this without difficulty 2. Severe electrolyte deficiencies, present on admission, active -patient had persistent very low potassium, phosphorus, magnesium -continued low K and low phos, magnesium deficiency corrected -continue electrolyte replacement IV/p.o. -continue sodium potassium phosphate to 3 packets 4 times daily which is equivalent to about 100 millimole phosphorus replacement per day -monitor labs b.i.d. until stable -patient given 2 g of magnesium sulfate, in addition to b.i.d. potassium. Will check labs again in the morning 3. 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 patient with history of severe withdrawal episode approx 6 years ago requiring intubation and where she suffered a seizure. -last CIWA was 1, has lorazepam ordered but has not needed -continue daily oral thiamin and MVI 4. Acute ETOH hepatitis, present on admission -patient has transaminitis likely secondary to ETOH -has markers of iron overload with a ferritin of 1950 and transferrin saturation 100%. However, this is likely elevated due to alcoholic liver disease versus hemochromatosis. Iron studies can be followed as outpatient with further evaluation if indicated. -LFTs improving. Discriminant function of 2. No indication for steroids. Coags are normal. - hepatic function is improving with fluid resusciatation and transferrin has decreased slightly to 1350. -serologies positive for hep B core antibody, negative for hep B surface antigen and antiibody, negative for hep C antibody, 5. Likely aspiration pneumonia, present on admission, active -patient presented with dyspnea and bilateral ground-glass opacities on CT and having low-grade fevers - initial and repeat COVID 19 testing negative. Complete viral panel negative. Blood cultures negative. -continue Rocephin and Zithromax -echo with normal LV, EF 60-65%, mildly dilated RV with RV hypertrophy, mild aor tic stenosis, moderate TR, moderate to severe pulmonary hypertension -patient likely has interstitial lung disease as well. She would benefit from pulmonary consultation as an outpatient for her chronic dyspnea -no evidence to suggest congestive heart failure, will not diurese at this time. 6. Acute pancytopenia, present on admission, active -likely secondary to ETOH bone marrow suppression and possibly acute infection -stable/improving - continue to follow. transfuse for plt <20, <50 if bleeding. - hold DVT ppx. -B12 level normal - HIV testing negative. 7. Acute diarrhea, present on admission, active -patient having small amounts of frequent stools -stool C diff negative -continue monitoring 8. Chronic neuropathy, active -continue duloxetine -patient is followed by neurology as outpatient Patient being assessed by PT and OT. She is getting close to discharge and would likely need to go to nursing home for rehab. Patient likely will be discharged to [facility] tomorrow.
[2020-02-20] MEDS: POTASSIUM CHLORIDE 20 MEQ TAB 40 MEQ PO ×2 (14:08→16:43)
[2020-02-20 15:30] VITALS: BP 122/73; PULSE 119; RESP 19; TEMP 36.3; O2SAT 98
[2020-02-20 20:00] VITALS: BP 108/69; PULSE 119; RESP 17; TEMP 36.6; O2SAT 96
[2020-02-20] MEDS: CEFTRIAXONE 1 GM/50 ML FROZ.PIGGY IV (21:00)
[2020-02-20] MEDS: AZITHROMYCIN 250 MG in DEXTROSE 5% IN WATER 250 ML IV (22:19)
[2020-02-21 00:12] VITALS: BP 99/64; PULSE 119; RESP 16; TEMP 36.4; O2SAT 95
[2020-02-21 05:00] VITALS: BP 101/69; PULSE 112; RESP 18; TEMP 37.1; O2SAT 94
[2020-02-21 06:39] LABS: BUN Creatinine Ratio 13.5 (6-22); Blood Urea Nitrogen 7 mg/dL (7-17); Calcium 7.4 mg/dL (8.4-10.2); Carbon Dioxide 29 mmol/L (22-32); Chloride 99 mmol/L (98-107); Estimated Glomerular Filt Rate > 60.0 mL/min (>60); Glucose 122 mg/dL (80-110); HEMOLYSIS < 15 (0-50); Magnesium 1.4 mg/dL (1.6-2.3); Potassium 3.6 mmol/L (3.4-5.1); Sodium 134 mmol/L (137-145)
[2020-02-21 08:00] VITALS: BP 101/66; PULSE 108; RESP 16; TEMP 36.8; O2SAT 94
[2020-02-21] MEDS: THIAMINE 100 MG TABLET PO (08:51)
[2020-02-21] MEDS: POTASSIUM CHLORIDE 20 MEQ TAB 40 MEQ PO (08:51)
[2020-02-21] MEDS: MULTIVITAMIN 1 TABLET 1 TAB PO (08:51)
[2020-02-21] MEDS: SODIUM,POTASSIUM PHOSPHATES PACKET 3 EACH PO ×2 (09:39→13:46)
[2020-02-21] MEDS: DULOXETINE 20 MG CAPSULE 40 MG PO (09:40)
[2020-02-21] MEDS: SODIUM CHLORIDE 0.9% FLUSH 10 ML IV (09:40)
--- NOTE | 2020-02-21 10:23 | OT.IP.TRT ---
Current Diagnoses Acidosis (02/16/20) Occupational Therapy Treatment Note M2 OT-IP Current Condition Start: 02/19/20 13:16 Freq: Status: Active Protocol: Document 02/19/20 13:16 CGR (Rec: 02/19/20 13:39 CGR [id number]) Occupational Therapy Current Condition Current Condition Evaluation Date 02/19/20 Treatment Diagnosis nausea and vomiting x2 days, ETOH Diagnosis Onset Date 02/16/20 M3 OT- IP Subjective and Pain Start: 02/19/20 13:16 Freq: Status: Active Protocol: Document 02/21/20 10:10 [facility] (Rec: 02/21/20 10:23 [facility] [id number]) OT- Subjective Occupational Therapy Visit Type Type Treatment Note Visit Start Time 09:47 Visit Stop Time 10:02 Occupational Therapy Visit Comments Patient Comments Pt agreeable to wash up at the sink. OT Pain Assessment Pain When Pain Assessed At Rest Pain Present Pain Present Denied Pain M4 OT- IP ADL's Start: 02/19/20 13:16 Freq: Status: Active Protocol: Document 02/21/20 10:10 [facility] (Rec: 02/21/20 10:23 [facility] [id number]) OT ADL-Grooming General Evaluation Grooming Ability Independent Areas Needing Assistance Combing/Brushing Hair,Face Washing Comments OT Grooming Comments pt stood at sink for her washing face. OT ADL-Oral Care Comments Oral Care Comments Pt wanting to do after lunch. OT ADL-Dressing General Eval Lower Body Dressing Ability Standby Assistance Comments OT Dressing Comments Pt able to segun/doff socks with increased time. OT ADL-Toileting Comments OT Toileting Comments Pt not having to go. OT ADL-Bathing Comments OT Bathing Comments Pt stated showered yesterday with nursing and able to do most of the shower on her own, but got tired. M5 OT- IP IADL's Start: 02/19/20 13:16 Freq: Status: Active Protocol: Document 02/19/20 13:16 CGR (Rec: 02/19/20 13:39 CGR [id number]) OT-Instrumental Activities of Daily Living Deficits IADL Deficits Identified Deficits Home Safety Awareness Awareness of Need for Assistance at Home Good Awareness Ability to Problem Solve Emergency Able to Problem Solve Situations Medication Management Medication Management No Deficits Identified Money Management Money Management Caregiver Provides Assistance Meal Preparation Meal Preparation Caregiver Provides Assist Salesman/Owner Salesman/Owner Caregiver Provides Assist Driving Driving Comments Pt does not drive. M6 OT- IP Functional Cognition Start: 02/19/20 13:16 Freq: Status: Active Protocol: Document 02/21/20 10:10 [facility] (Rec: 02/21/20 10:23 [facility] [id number]) Cognitive Factors Limiting Selfcare Function Cognitive Comments Cognitive Assessment Comments Pt appears at baseline. M7 OT- IP Mobility and Balance Start: 02/19/20 13:16 Freq: Status: Active Protocol: Document 02/21/20 10:10 [facility] (Rec: 02/21/20 10:23 [facility] [id number]) OT-Transfer Assessment Sit to and From Stand Sit to and from Stand Standby Assistance Transfers Transfer Ability Standby Assistance Technique Transfer Destination Chair Devices Transfer Assistive Devices Gait Belt,Front Wheeled Walker Comments Mobility Comments Distant SBA with FWW in the room and able to walk to the sink and around the room. Pt's O2 on RA 94%. OT- Gait Assessment Gait Gait Assistance Required: Standby Assistance Assistive Devices Assistive Device Gait Belt,Front Wheeled Walker OT- Balance Assessment Sitting Balance and Reactions Static Sitting Balance Ability Normal Dynamic Sitting Balance Ability Good Standing Balance and Reactions Static Standing Balance Ability Good Comments Other Balance Tests/Deviations/Treatment Pt worried about having to : take care of the dogs at home and being able to get up the steps to her bedroom. Pt states, I do not want to overburden my at this time. M8 OT- IP Objective Assessments Start: 02/19/20 13:16 Freq: Status: Active Protocol: Document 02/19/20 13:16 [facility] (Rec: 02/19/20 13:39 [facility] [id number]) OT Gross Range of Motion Upper Extremity Range of Motion Assessment Within Functional Limits OT Strength Upper Extremity Strength Assessment Bilaterally Impaired Comments Strength Comments Grossly 4-/5 with poor endurance of muscle contraction. OT- Coordination Assessment Upper Extremity Finger to Nose Test Within Functional Limits Finger Tapping Test Within Functional Limits OT-Muscle Tone Assessment Muscle Tone WNL No OT Sensation Assessment Edema Edema Absent M9 OT- IP Assessment and Plan Start: 02/19/20 13:16 Freq: Status: Active Protocol: Document 02/21/20 10:10 [facility] (Rec: 02/21/20 10:23 [facility] [id number]) OT Summary Assessment and Plan Potential Rehabilitation Potential Good Analytic Complexity at Evaluation Low Summary Progress Towards Goals Progressing Toward Goals Assessment Summary Pt doing well and appears close to baseline for ADL needs. Pt however concerned about having to get back to doing chores of taking out the dogs several times a day, IADL's and not wanting to burden her with extra chores. Pt wanting to do skilled rehab prior to going home. Pending insurance coverage, pt would benefit from home with assist and home health vs SNF. Goals Dressing Goal Independent,Drapery Installer,Sock Aid Toileting Goal Independent Bathing Goal Independent Toilet Transfer Goal Independent Shower Transfer Goal Independent Days to Meet Goals 3 Frequency of Treatment Frequency Of Treatment Once a Day Treatment Plan OT Treatment Plan ADL Training,Functional Mobility,Patient/Family Education,Discharge Planning Discharge Recommendations OT Discharge Recommendations Home with Assistance,Home Health,SNF Rehab Other Discharge Recommendations Pt wanting to go to skilled rehab. Transportation Needs at Discharge Private Vehicle
--- NOTE | 2020-02-21 12:46 | PC.NURSE ---
Addendum entered by Joceline Bruce R.N. 02/21/20 14:22: Transfer: Pt had order to receive Mg rider, IV's are already out. Informed Dr. Paiz, see new orders. Pt given mg oral prior to d/c. She will cont to receive mag at facility. Facility called regarding information and pt/spouse also given information on hypomagnesium. They still feel ready to transfer. Pt transfered to facility via private auto. Facility aware they are on their way. Original Note: Transfer: Pt feels ready to transfer to facility today. Julia, admitting nurse at facility called and report given. Reviewed hospital course and labs. Discussed pt's skin and adl's ability. Questions answered. pt ready for transfer to facility.
[2020-02-21] MEDS: MAGNESIUM OXIDE 400 MG TABLET PO (13:46)
--- NOTE | 2020-02-21 13:46 | CM.DPC ---
DCP/continued: [facility]. However, she did not get authorization from [facility] until after 12:00 noon today. Met with patient and spouse both aware and agreeable to plan. Per Marilyn, they currently do not have transport. Patient's spouse agreeable to take patient via private vehicle. Orders and PASRR faxed to [facility]. RN given number to call report. Patient and spouse instructed to go directly to [facility] without making stops. Both in agreement. P: [facility] [place] today. HUNTER Bosch
--- NOTE | 2020-02-21 17:58 | P.DS_ITS ---
History of Present Illness History of Present Illness Date Patient Seen: 02/21/20 Chief complaint: SOB Narrative: Morenita Watt is a 64 year old female with PMH of EtOH use, chronic neuropathy, and vision problems who presents with primarily nausea and vomiting for the past 1-2 days and shortness of breath progressive over the past week. She also has complained of a sore throat over the past week. Shortness of breath has really been over the past 6 months or so, starting with exertion but over the past few days leading to shortness of breath at rest. She denies any chest pain, or tightness. She does complain of epigastric abdominal pain but only recently after vomiting. She further complains of a sore throat and odynophagia. She also has been drinking quite heavily over the past 3 months since her birthday. She was a chronic alcoholic and was admitted approximately 6 years ago to [facility] for alcohol withdrawal where she suffered seizures and needed to be intubated. She reports being abstinent from alcohol until 3 months ago when she drink and her birthday and has continued drinking she states a 0.5 gal per week of vodka. In the emergency room, she was mildly tachypnic but other vitals were unremarkable. Initial laboratory evaluations showed a bicarb of 8 with a glucose of 236. Hgb of 16.2, MCV 100.2, and Plt of 67. ABC showed pH of 7.2 with PCO2 of 17 which was appropriate for bicarb of 7. Initial lactate 2.5 improved to 1.5 on repeat. Tbili 2.7 with AST of 374 and ALT 131. INR 1.0. Initialy trop negaitve. BNP 231. PRocalcitonin 0.63. Ferritin level 1950. CXR was negative for acute processes. CTA showing extensive ground glass opacities, centrolobular emphysema, enlarged lymph nodes, and CT Abd showing hepatomegaly and steatosis, trace fluid in the pelvis. Patient was admitted to the ICU on an insulin infusion for possible DKA. Discharge Providers Provider Date of admission: 02/16/20 17:30 Discharge Date: 02/21/20 Consults: 02/16/20 19:43 Consult to SENIOR SECURITY ENGINEER - [employer] Yard Supervisor Routine Comment: EtOH use SENIOR SECURITY ENGINEER Consult: Substance Abuse Assess 02/18/20 10:29 Consult to Occupational Therapy Evaluate & Treat Comment: Physician Instructions: Evaluate and treat Consult to Physical Therapy Evaluate & Treat Comment: Physician Instructions: Evaluate and Treat Discharge provider: Arely Paiz MD Summary Hospital Course Discharge Diagnosis: 1. Starvation ketosis 2. Anion gap metabolic acidosis 3. Alcohol dependence 4. Acute alcoholic hepatitis 5. Community-acquired pneumonia 6. Thrombocytopenia 7. Hyponatremia 8. Hypo magnesemia 9. Hypokalemia 10. Elevated ferritin 11. Probable interstitial lung disease 12. Pancytopenia most likely related to chronic alcohol use Hospital Course: Patient was admitted to the hospital with severe anion gap met abolic acidosis. Initially it was felt that the patient might have diabetic ketoacidosis. However she was found to have severe ketosis related to starvation. The patient had significant metabolic abnormalities including hyponatremia, hypokalemia, hypomagnesemia. All of these were replaced. Patient was also found to have pneumonia on CT. Chest CT showed ground-glass opacities. Patient was ruled out for coded. And treated for pneumonia. There was question of interstitial lung disease which is likely chronic. Patient was also found to have thrombocytopenia which was felt to be related to chronic alcohol use. In addition her ferritin was elevated. Patient's LFTs were elevated felt to be secondary to acute alcoholic hepatitis. She did not have any significant evidence of alcohol withdrawal. Patient was on a CIWA bladder CIWA scores were fairly low. She was somewhat weak with ambulation. She was seen by PT and OT. Their recommendations were that the patient would require additional rehabilitation given her weakness. Patient was agreeable and arrangements were made for her to be transferred to [facility] would be for ongoing rehabilitation Status at Discharge Cognitive/behavioral status at discharge: oriented Functional status at discharge: independent ambulation Overall status at discharge: patient is not back to baseline Time Spent with Patient Time spent: Less than 30 minutes Time spent discussing smoking cessation with patient: 3 to 10 minutes Exam Vital Signs (past 8 hours): Oxygen Delivery Method Room Air Oxygen Flow Rate 0 Narrative Exam Narrative: Pleasant female in no obvious distress Lungs: Clear to auscultation Cardiac exam regular rate rhythm normal S1-S2 Abdomen: Soft nontender nondistended Extremities: No edema Objective Labs Result Diagrams: 02/19/20 04:44 02/21/20 05:55 Labs: Laboratory Results - last 24 hr 02/21/20 05:55 Sodium 134 L Potassium 3.6 Chloride 99 Carbon Dioxide 29 BUN 7 Creatinine 0.52 Estimated GFR > 60.0 BUN/Creatinine Ratio 13.5 Glucose 122 H Calcium 7.4 L Magnesium 1.4 L Discharge Plan Discharge Plan [facility] comment: please check electrlytes and Magnesium in 2-3 days Discharge orders & Medications Prescriptions: New magnesium oxide 400 mg magnesium capsule 400 mg PO BID Qty: 20 RF: 0 Continued ketotifen fumarate [Zaditor] 0.025 % (0.035 %) drops 1 drop EYE-BOTH BID Qty: 5 RF: 0 duloxetine 20 mg capsule,delayed release(DR/EC) 40 mg PO DAILY RF: 0 Discharge Health Status Multidrug resistant organism: No MDRO Diet/Activity/Treatments Diet: Diet as Tolerated and Regular Liquid consistency: Normal/Thin Visit Report/Discharge Packet Instructions: DI for Alcohol Abuse, DI for Hypomagnesemia Discharges patient from system. Discharge Date/Time: 02/21/20 14:00
--- NOTE | 2020-02-22 09:26 | CM.DPC ---
DCP cont: Faxed discharge summary to [facility] at fax # [phone]. Fax confirmation scanned in. Natty Shelby, [facility] Ice Cream Server
== END 2020-02-21 14:00 | DRG 640 ==
LOC: ED 17:05 → AC 17:31 → ICU 18:17 → AC 02-19 08:10
PROVIDERS: Internal Medicine; Admitting Provider Internal Medicine; Emergency Provider Emergency Medicine; Referring Provider Emergency Medicine; Visit Provider Internal Medicine
DX: E87.2 Acidosis (principal); J18.9 Pneumonia, unspecified organism; D61.818 Other pancytopenia; E88.89 Other specified metabolic disorders; K70.10 Alcoholic hepatitis without ascites; E86.0 Dehydration; E87.1 Hypo-osmolality and hyponatremia; E87.6 Hypokalemia; R19.7 Diarrhea, unspecified; G62.9 Polyneuropathy, unspecified; T73.0XXA Starvation, initial encounter; E83.39 Other disorders of phosphorus metabolism; F10.20 Alcohol dependence, uncomplicated; Z87.891 Personal history of nicotine dependence; Z03.818 Encounter for observation for suspected exposure to other biological agents ruled out
CPT/HCPCS: 36415; 36600; 71046; 71275; 74177; 80048; 80051; 80053; 80061; 80329; 81001; 82009; 82550; 82553; 82607; 82728; 82805; 82947; 82962; 83036; 83540; 83550; 83605; 83735; 83880; 84100; 84132; 84145; 84443; 84484; 85025; 85610; 85651; 85730; 86140; 86704; 86706; 86803; 87040; 87340; 87389; 87493; 87633; 87635; 87797; 93005; 93306; 94150; 96361; 96374; 97110; 97116; 97162; 97165; 97530; 97535; 99285; G0480; J2405; J3480; Q9967

== ENCOUNTER → 2022-02-05 14:08 | Outpatient (CLI) | payer OTHER, SELFPAY ==
[2020-02-16 19:02] VITALS: BMI 29.4
--- NOTE | 2022-02-05 | DI.MG.S_ITS ---
BILATERAL DIGITAL DIAGNOSTIC MAMMOGRAM 3D/2D SHORT-TERM FOLLOW-UP: 02/05/2022 CLINICAL: Short term follow up of the right breast, due for bilateral imaging. Comparison is made to exams dated: 05/16/2021 mammogram, 10/10/2020 mammogram, and 03/26/2015 mammogram - [facility]. The tissue of both breasts is heterogeneously dense. This may lower the sensitivity of mammography. There are new diffuse segmental amorphous calcifications in the right breast at 11 o'clock anterior depth. These are seen in additional views. There is a biopsy clip associated with the calcifications. There also are stable benign grouped fine punctate round calcifications in the right breast at 1 o'clock posterior depth. No other significant masses, calcifications, or other findings are seen in either breast. IMPRESSION: SUSPICIOUS OF MALIGNANCY The new diffuse segmental amorphous calcifications in the right breast at 11 o'clock anterior depth are at a low suspicion for malignancy. A stereotactic biopsy is recommended. These findings and recommendation were discussed with the patient by Dr Parker. This exam was interpreted at Station ID: [id number]. NOTE: For mammograms, a report in lay terms will be sent to the patient. Approximately 15% of breast malignancies will not be visualized mammographically. In the management of a palpable breast mass, a negative mammogram must not discourage biopsy of a clinically suspicious lesion. Electronically Signed By: Tristin Graham acr/:02/05/2022 15:26:39 letter sent: Biopsy Required ACR BI-RADS Category 4a: Suspicious abnormality - low suspicion for malignancy [id number]
== END ==
PROVIDERS: Referring Provider Physician Assistant Medical; Visit Provider Physician Assistant Medical
DX: R92.8 Other abnormal and inconclusive findings on diagnostic imaging of breast (principal); R92.1 Mammographic calcification found on diagnostic imaging of breast
CPT/HCPCS: 77066; G0279